=== PATIENT | female | born 1960 | race Caucasian/White ===

== ENCOUNTER 2017-10-11 15:10 | Inpatient (IN) | payer OTHER, MEDICAID, SELFPAY ==
[2017-10-11] VITALS (23 sets, daily range): BP systolic 95–134; BP diastolic 51–78; PULSE 61–90; RESP 11–23; TEMP 36.7–36.9; O2SAT 98–100; BMI 20.7; BMI 21.2
--- NOTE | 2017-10-11 16:39 | EKG12_ITS ---
Test Reason : PCI Blood Pressure : / mmHG Vent. Rate : 077 BPM Atrial Rate : 077 BPM P-R Int : 154 ms QRS Dur : 088 ms QT Int : 410 ms P-R-T Axes : 078 060 070 degrees QTc Int : 463 ms Normal sinus rhythm Normal ECG When compared with ECG of 11-OCT-2017 16:49, MANUAL COMPARISON REQUIRED, DATA IS UNCONFIRMED Confirmed by FAINA ACOSTA, AIYANA ([id number]), assignment desk editor BEATRICE MADISON ([id number]) on 10/19/2017 1:11:51 PM Referred By: Beau Lan Confirmed By:AIYANA EISENBERG MD
--- NOTE | 2017-10-11 16:39 | RAD_ITS ---
STUDY: X-RAY CHEST REASON FOR EXAM: Female, 57 years old. Chest pain. TECHNIQUE: Single AP portable view of the chest. COMPARISON: None. FINDINGS: Telemetry wires overlie the chest. The lungs are mildly hyperexpanded. There are chronic interstitial changes without acute infiltrate or mass. There is no demonstrated pleural abnormality. Normal size heart. Normal mediastinum and vania. Normal visualized pulmonary arteries. Normal visualized aortic arch and descending thoracic aorta. There are diffuse degenerative changes of the visualized thoracic spine. There is degenerative osteoarthritis of the bilateral shoulders. There is no demonstrated abnormality of the visualized soft tissue structures of the upper abdomen. RAD/Chest 1 View (Portable) IMPRESSION: Question COPD without acute cardiopulmonary disease. Electronically Signed: Addison Camarena DO at 17:40 EDT Tel [phone], Service support ,
--- NOTE | 2017-10-11 16:41 | ED.VISSUMM ---
- ER Visit Summary Date of Service: 10/11/17 Chief Complaint: Shortness of breath History of Present Illness: The patient is a 57 F presenting with shortness of breath. Patient states she walked to her mailbox. She came inside and was very short of breath. She was diaphoretic. She had chest pain in mid chest when she takes a deep inspiration. She states that it was hot outside but she has been going outside occasionally. She has history of metastatic small cell lung cancer. Her last chemo was on October 06. 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 She states that she has not felt like this in the past. She has nausea, shortness breath. Denies fever. Physical Examination: Vitals are stable. Patient is afebrile. Alert no acute distress. HEENT exam is unremarkable. Neck is supple. Lungs are clear and equal bilaterally. Heart is regular rate and rhythm. Abdomen is soft nontender nondistended. Extremities are unremarkable. Skin is warm and dry. No focal neurologic deficit. Remainder of exam is unremarkable. Emergency Department Course and Treatment: Patient was given on aspirin on arrival. EKG shows inferior ST elevation [place]. This was sent to Dr. Lan who will take her to the cardiac Associate Material Handler. She was given Brilinta, heparin, IV fluids. Dr. Mendoza is at bedside and will escort her to the Associate Material Handler. Disposition: Admission Impression: Inferior ST elevation [place] This note was generated with [employer] dictation software. It may contain incorrect words, spelling, and punctuation that were not noted in review of the chart prior to signing ED Disposition - Plan for ED Patient: Chief Complaint: Shortness of Breath
[2017-10-11] MEDS: Aspirin 81 MG TAB.CHEW 324 MG PO (16:48)
[2017-10-11 17:03] LABS: Absolute Lymphocyte Count 1.03 X10^3/ul (0.83-4.51); Absolute Neutrophil Count 5.4 X10^3/uL (2.0-7.7); Basophil# 0.03 X10^3/uL; Basophil% 0.5 % (0-1); Hematocrit 36.1 % (37-47); Lymphocyte # 1.03 X10^3/ul (4.0); Lymphocyte % 15.6 % (19-41); Mean Corp Hgb Conc 33.2 g/gl (32-36); Mean Corpuscular Hgb 28.8 pg (27.0-32.0); Mean Corpuscular Volume 86.8 fL (81-99); Mean Platelet Vol. 8.5 fl (6.2-12.0); Monocyte# 0.02 X10^3/uL; Monocyte% 0.3 % (0-10); Neutrophil # 5.43 X10^3/uL (2.7-7.7); Neutrophil % 82.2 % (47-70); Platelet Count 476 K/mm3 (150-450); RBC Distribution Width CV 12.8 % (11.6-14.6); RBC Distribution Width SD 40.8 fl (35.1-43.9); Red Blood Count 4.16 M/mm3 (4.2-5.4); White Blood Count 6.6 K/mm3 (4.4-11.0)
[2017-10-11 17:05] LABS: POSITIVE COUNT NO; POSITIVE DIFFERENTIAL NO; POSITIVE MORPHOLOGY NO
[2017-10-11] MEDS: Heparin Injection (Vial) 5,000 UNIT/ML VIAL 4000 UNIT IV (17:11)
[2017-10-11] MEDS: 0.9% Normal Saline 1,000 ML 999 ML IV (17:12)
[2017-10-11] MEDS: TICAGRELOR 90 MG TABLET 180 MG PO (17:12)
[2017-10-11 17:18] LABS: Anion Gap 9 (5-15); BUN 17 mg/dL (7-18); BUN/Creat Ratio 21.8 RATIO (10-20); Calcium,Total 9.2 mg/dL (8.5-10.1); Chloride 102 mmol/L (98-107); Creatinine, Serum 0.78 mg/dL (0.55-1.02); EST Glomerular Filtration Rate 81 mL/min (>60); Est Glom Filt Rate - Afr Amer 98 mL/min (>60); Estimated Creatinine Clearance 71.23 ml/min; Glucose 104 mg/dL (74-106); Sodium Level 137 mmol/L (136-145)
--- NOTE | 2017-10-11 17:19 | PCM.HP.STD ---
Problem List (1) HTN (hypertension) Status: Chronic (2) STEMI (ST elevation myocardial infarction) Status: Acute (3) HLD (hyperlipidemia) Status: Chronic (4) Lung cancer Status: Chronic (5) Tobacco dependence Status: Chronic History of Present Illness Date of Admission: 10/11/17 Chief Complaint: chest pain The patient is a 57 year old F with a PMH of lung CA diagnosed in August of 2017(being treated by Dr. Gallegos), HTN, HLD and tobacco dependence who presented to the ED at [facility] on 10/11/17 c/o substernal chest pain associated with SOB and diaphoresis. She denied any hx of CAD. There is no family hx of CAD but her mother had an aneurysm. She is currently undergoing chemotherapy and had her last chemo 1 week ago. Chest x-ray shows flattening of the diaphragms consistent with probable COPD and a possible spiculated lesion in the right midlung. CBC shows white blood cell count of 6.6 with hemoglobin of 12 and platelets of 476,000. Electrolytes are within normal limits and the BUN is 17 with a creatinine of 0.78. Initial troponin is elevated at 0.079. EKG is not available for my review at this time.......pt being transferred to the cathodic protection technician. 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 Denies: Edema, Light Headedness, Palpitations Respiratory: Reports: Shortness of Breath - associated with the CP. Denies: Cough, Sputum production Gastrointestinal: Denies: Abdominal Pain, Nausea, Vomiting Genitourinary: Denies: Dysuria Musculoskeletal: Denies: Arm Pain, Joint Tenderness, Leg Pain Skin: Denies: Rash, Wounds Neurological: Denies: Numbness, Tingling, Focal weakness Psychiatric: Reports: Anxiety Endocrine: Reports: Change in Body Habitus - losing weight Hematologic/ Lymphatic: Denies: Hx of blood clot VTE Information - Inpt Only VTE Present on Admission: No VTE Mechan Device Prophylaxis: SCD's, Knee High BEAU Hose VTE Pharm Prophylaxis ordered?: No Reason prophylaxis not ordered:: Treatment Not Indicated Patient Problems: Active and Suspected Problems STEMI (ST elevation myocardial infarction) (Acute) - Physical Exam General: Alert, Oriented x3, Cooperative, - - anxious and overwhelmed HEENT: Atraumatic, PERRLA, EOMI, Normocephalic Oral: Dry Mucosa Neck: Supple, No JVD, Negative Carotid Bruits, Trachea Midline, - - Carotids have brisk upstroke and good pulse volume bilaterally Lungs: Clear to auscultation, No rhonchi, No wheeze, No rales Cardiovascular: Regular rate, Regular Rhythm, Normal S1, Normal S2, No murmurs, No Ectopic Activity, No rub noted, No Gallop Abdomen: Bowel Sounds Present, Soft, Non Tender, Non-Distended Extremities: No clubbing, No cyanosis, No edema, No Calf Tenderness, Peripheral Pulses Normal Skin: No rashes, No breakdown Neurological: Cranial nerves II-XII grossly intact, Neuro grossly intact Psych/Mental Status: Appropriate, Anxious Vital Signs Temp Pulse Resp BP Pulse Ox 98.4 F 84 14 133/77 H 100 10/11/17 15:12 10/11/17 17:13 10/11/17 17:13 10/11/17 17:13 10/11/17 17:13 Oxygen Delivery Method Room Air Weight: 125 lb Body Mass Index (BMI) 20.7 Laboratory Tests Past 24 Hrs 10/11/17 10/11/17 16:55 16:55 WBC 6.6 RBC 4.16 L Hgb 12.0 Hct 36.1 L MCV 86.8 MCH 28.8 MCHC 33.2 RDW 12.8 RDW Differential 40.8 Plt Count 476 H MPV 8.5 Immature Gran % (Auto) 1.400 H Neut % (Auto) 82.2 H Lymph % (Auto) 15.6 L [place] % (Auto) 0.3 Eos % (Auto) 0.0 Baso % (Auto) 0.5 Absolute Neuts (auto) 5.4 Absolute Lymphs (auto) 1.03 Total Counted Not Reportable Sodium 137 Potassium 4.0 Chloride 102 Carbon Dioxide 26.0 Anion Gap 9 BUN 17 Creatinine 0.78 Estim Creat Clear Calc 71.23 Est GFR (MDRD) Af Amer 98 Est GFR (MDRD) Non-Af 81 BUN/Creatinine Ratio 21.8 H Glucose 104 Calcium 9.2 Troponin I 0.079 H Assessment/Plan All Active Problems H/O right coronary artery stent placement (Acute 10/11/17) STEMI (ST elevation myocardial infarction) (Acute) Impressions 1. STEMI 2. Lung CA diagnosed in August of 2017 3. HTN 4. HLD 5. Tobacco dependence 6. Dehydration Pt taken to the cathodic protection technician from the ED. further orders after results of cath known and she is transferred to the ICU. Code Visit Inpatient E&M: 82235 Init Hosp L3
--- NOTE | 2017-10-11 17:24 | HP.PCM_ITS ---
Problem List (1) HTN (hypertension) Status: Chronic (2) STEMI (ST elevation myocardial infarction) Status: Acute (3) HLD (hyperlipidemia) Status: Chronic (4) Lung cancer Status: Chronic (5) Tobacco dependence Status: Chronic History of Present Illness Date of Admission: 10/11/17 Chief Complaint: chest pain The patient is a 57 year old F with a PMH of lung CA diagnosed in August of 2017( being treated by Dr. Gallegos), HTN, HLD and tobacco dependence who presented to the ED at [facility] on 10/11/17 c/o substernal chest pain associated with SOB and diaphoresis. She denied any hx of CAD. There is no family hx of CAD but her mother had an aneurysm. She is currently undergoing chemotherapy and had her last chemo 1 week ago. Chest x-ray shows flattening of the diaphragms consistent with probable COPD and a possible spiculated lesion in the right midlung. CBC shows white blood cell count of 6.6 with hemoglobin of 12 and platelets of 476,000. Electrolytes are within normal limits and the BUN is 17 with a creatinine of 0.78. Initial troponin is elevated at 0.079. EKG is not available for my review at this time.......pt being transferred to the semiconductor lab technician. 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 Denies: Edema, Light Headedness, Palpitations Respiratory: Reports: Shortness of Breath - associated with the CP. Denies: Cough, Sputum production Gastrointestinal: Denies: Abdominal Pain, Nausea, Vomiting Genitourinary: Denies: Dysuria Musculoskeletal: Denies: Arm Pain, Joint Tenderness, Leg Pain Skin: Denies: Rash, Wounds Neurological: Denies: Numbness, Tingling, Focal weakness Psychiatric: Reports: Anxiety Endocrine: Reports: Change in Body Habitus - losing weight Hematologic/ Lymphatic: Denies: Hx of blood clot VTE Information - Inpt Only VTE Present on Admission: No VTE Mechan Device Prophylaxis: SCD's, Knee High BEAU Hose VTE Pharm Prophylaxis ordered?: No Reason prophylaxis not ordered:: Treatment Not Indicated Patient Problems: Active and Suspected Problems STEMI (ST elevation myocardial infarction) (Acute) - Physical Exam General: Alert, Oriented x3, Cooperative, - - anxious and overwhelmed HEENT: Atraumatic, PERRLA, EOMI, Normocephalic Oral: Dry Mucosa Neck: Supple, No JVD, Negative Carotid Bruits, Trachea Midline, - - Carotids have brisk upstroke and good pulse volume bilaterally Lungs: Clear to auscultation, No rhonchi, No wheeze, No rales Cardiovascular: Regular rate, Regular Rhythm, Normal S1, Normal S2, No murmurs, No Ectopic Activity, No rub noted, No Gallop Abdomen: Bowel Sounds Present, Soft, Non Tender, Non-Distended Extremities: No clubbing, No cyanosis, No edema, No Calf Tenderness, Peripheral Pulses Normal Skin: No rashes, No breakdown Neurological: Cranial nerves II-XII grossly intact, Neuro grossly intact Psych/Mental Status: Appropriate, Anxious Vital Signs Temp Pulse Resp BP Pulse Ox 98.4 F 84 14 133/77 H 100 10/11/17 15:12 10/11/17 17:13 10/11/17 17:13 10/11/17 17:13 10/11/17 17:13 Oxygen Delivery Method Room Air Weight: 125 lb Body Mass Index (BMI) 20.7 Laboratory Tests Past 24 Hrs 10/11/17 10/11/17 16:55 16:55 WBC 6.6 RBC 4.16 L Hgb 12.0 Hct 36.1 L MCV 86.8 MCH 28.8 MCHC 33.2 RDW 12.8 RDW Differential 40.8 Plt Count 476 H MPV 8.5 Immature Gran % (Auto) 1.400 H Neut % (Auto) 82.2 H Lymph % (Auto) 15.6 L [place] % (Auto) 0.3 Eos % (Auto) 0.0 Baso % (Auto) 0.5 Absolute Neuts (auto) 5.4 Absolute Lymphs (auto) 1.03 Total Counted Not Reportable Sodium 137 Potassium 4.0 Chloride 102 Carbon Dioxide 26.0 Anion Gap 9 BUN 17 Creatinine 0.78 Estim Creat Clear Calc 71.23 Est GFR (MDRD) Af Amer 98 Est GFR (MDRD) Non-Af 81 BUN/Creatinine Ratio 21.8 H Glucose 104 Calcium 9.2 Troponin I 0.079 H Assessment/Plan All Active Problems H/O right coronary artery stent placement (Acute 10/11/17) STEMI (ST elevation myocardial infarction) (Acute) Impressions 1. STEMI 2. Lung CA diagnosed in August of 2017 3. HTN 4. HLD 5. Tobacco dependence 6. Dehydration Pt taken to the semiconductor lab technician from the ED. further orders after results of cath known and she is transferred to the ICU. Code Visit Inpatient E&M: 21392 Init Hosp L3
[2017-10-11 17:28] LABS: Partial Thromboplast Time 24.8 Seconds (24.1-36.2)
[2017-10-11 18:41] LABS: ACT Activated Clotting Time 224 sec (74-137)
[2017-10-11 18:41] LABS: ACT Activated Clotting Time 175 sec (74-137)
--- NOTE | 2017-10-11 18:44 | EKG12_ITS ---
Test Reason : DYSRHYTHMIA Blood Pressure : / mmHG Vent. Rate : 077 BPM Atrial Rate : 077 BPM P-R Int : 144 ms QRS Dur : 084 ms QT Int : 398 ms P-R-T Axes : 078 053 092 degrees QTc Int : 450 ms AGE AND GENDER SPECIFIC ECG ANALYSIS Normal sinus rhythm Inferior infarct , possibly acute ACUTE VA / STEMI Consider right ventricular involvement in acute inferior infarct Abnormal ECG Confirmed by FAINA ACOSTA, AIYANA ([id number]), brands editor BEATRICE MADISON ([id number]) on 10/14/2017 2:54:46 PM Referred By: Beau Lan Confirmed By:AIYANA EISENBERG MD
--- NOTE | 2017-10-11 18:44 | CL.I_ITS ---
Patient Name: STEAFN MARQUES Study Date: 10/11/2017 Performing: Beau Lan MD Ht: 64.96 inches 165 cm : 1960 Wt: 125.66 lbs 57 kg Age: 57 Gender: female BSA: 1.62 PROCEDURE(S) PERFORMED CI49-QOH/COR/LV LW15-ONI, DELVIS AND/OR PTCA, ARTERY OR GRAFT, SINGLE VESSEL EI23-VDE W OR WO PTCA, EACH ADD'L ARTERY, SAME MAJOR CLINICAL PROFILE AND CO-MORBIDITIES Patient presents with STEMI for emergent cardiac cath. Indications: ACS <= 24 hrs, Suspected CAD Heart Failure: None Stress/Imaging Stress/Image Study Performed: No Angina Classification Anginal Classification w/in 2 Weeks: No symptoms CAD Presentations: STEMI. 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 Non obstructive coronary arteries Successful PTCA/DELVIS of the proximal PDA with a 2.25 x 20 Promus Synergy; 95%-->0%, no dissection. Successful PTCA/DELVIS of the mid RCA with a 3.5 x 32 Promus Synergy; 75%-->0%, no dissection. Successful PTCA/DELVIS of the Proximal RCA with a 3.0 x 20 Promus Synergy; 75%-->0%, no dissection. Pt had no CP/angina documented in waiting area and only mentioned pleuritic type CP during interview with Dr Matias at around 1643. STEMI called after EKG noted acute inferior ST elevation at 1651. RECOMMENDATIONS Referred for immediate PCI Management as per referring [place] Instructor Highly recommend quitting all tobacco products Follow up with primary sign maker Risk factor modification ASA Indefinitley Plavix for at least 12 months Routine post interventional care Refer for Outpatient Cardiac Rehab Manual sheath removal per protocol Follow up with Dr. Lan Medical management of LCX and DIAG#1. DESCRIPTION OF PROCEDURE The patient arrived to the procedure lab. The risks and benefits of the procedure as well as a full d escription of our services here and lack of surgical backup were fully explained to the patient and/o r their significant other prior to the catheterization. The Timeout was completed, verifying the jo ect patient and procedure. The patient's procedural site was prepped and draped in the usual fashion. Local anesthetic was given subcutaneously to right groin region with Lidocaine 2%. Using a modified Seldinger technique, arterial access was obtained via the right femoral artery, a 6Fr sheath was inse rted.. Left Coronary Artery selective angiography was performed in multiple views using a 4 Fr. JL5 catheter. Left Ventriculography was performed in KNIGHT projection using a 4 Fr. Pigtail catheter. LV to AO pullback pressures were then recordedThe images were reviewed and options discussed. A decision w as then made to proceed with an Intervention, IVUS or other adjunct procedure. HS 1 Guide catheter was inserted and engaged into the RCA. Runthrough Guide wire was advanced to the Right PDA. Angiogram performed pre balloon dilatation. 2.0 x 12 Emerge Balloon catheter was inserted. PTCA balloon inflated at 6 atms for 8 secs. Balloon catheter was repositioned to additional lesion i n the right coronary, mid. PTCA balloon inflated at 6 atms for 9 secs. Balloon catheter was repositio bobo to additional lesion in the posterior descending, proximal. PTCA balloon inflated at 6 atms for 6 secs. Angiogram performed post balloon dilatation. 2.25 x 20 Synergy Drug Eluting stent was inserted . Drug Eluting stent was advanced across the lesion in the posterior descending, proximal. 2.5 x 32 S ynergy Drug Eluting stent was inserted. Drug Eluting stent was advanced across the lesion in the righ t coronary, mid. 3.0 x 20 Synergy Drug Eluting stent was inserted. Drug Eluting stent was advanced ac ross the lesion in the right coronary, proximal. Angiogram performed post stent deployment. The art erial sheath was sutured in place and capped CORONARY ANGIOGRAPHY DOMINANCE: Right Dominant LEFT HEART ASSESSMENT Left Ventricular Ejection Fraction: by LV Gram 55 % Depressed Left Ventricular systolic function Normal Left Ventricular End Diastolic Pressure Inferior Mid Hypokinesis - Mild LEFT MAIN: Angiographically normal LEFT ANTERIOR DECENDING ARTERY: Mild luminal irregularities less than 30% DIAGONAL 1: Proximal - Mild luminal irregularities less than 30% CIRCUMFLEX ARTERY: MID CIRC: Moderate luminal irregularities up to 50% RIGHT CORONARY ARTERY: PROX RCA: 75 % Stenosis MID RCA: 75 % Stenosis RT PDA: Proximal - 95 % Stenosis INTERVENTION INFORMATION LESION SITE: Rt PDA (Proximal) Lesion Complexity: High/C, thrombus present: Yes, lesion length: 20 mm Pre Stenosis: 95 % Pre intervention VASQUEZ flow: 2 PROCEDURE: Drug Eluting Stent with pre dilatation. Post Stenosis: 0 % Post intervention VASQUEZ flow: 3 Lesion Devices: Medtronic 6 Fr HSI SH 100cm Guide Catheter Terumo .014 Runthrough Extra Floppy 180cm straight Gustavo Sci EMERGE MR 2.00x12 BALLOON Gustavo Sci Synergy MR DELVIS 2.25x20 LESION SITE: RCA (Mid) Lesion Complexity: High/C, lesion at bifurcation: Yes, thrombus present: No, culprit lesion: No, lesi on length: 32 mm Pre Stenosis: 75 % Pre intervention VASQUEZ flow: 3 PROCEDURE: Drug Eluting Stent with pre dilatation. Post Stenosis: 0 % Post intervention VASQUEZ flow: 3 Lesion Devices: Medtronic 6 Fr HSI SH 100cm Guide Catheter Terumo .014 Runthrough Extra Floppy 180cm straight Gustavo Sci EMERGE MR 2.00x12 BALLOON Gustavo Sci Synergy MR DELVIS 2.50x32 LESION SITE: RCA (Proximal) Lesion Complexity: High/C, lesion at bifurcation: No, thrombus present: No, lesion length: 20 mm, cul prit lesion: No PROCEDURE: Drug Eluting Stent Lesion Devices: Medtronic 6 Fr HSI SH 100cm Guide Catheter Terumo .014 Runthrough Extra Floppy 180cm straight Gustavo Sci Synergy MR DELVIS 3.00x20 COMPLICATIONS No Complications PROCEDURE MEDICATIONS Oxygen: 3 L/min via nasal cannula Oxygen: 4 L/min via nasal cannula Atropine 1mg/10ml 0.25 amp @ 10/11/2017 17:59:57 Heparin 6000 unit(s) IV 10/11/2017 17:53:15 Nitro 200 mcg IC 10/11/2017 18:14:52 IV Fluids: .9 NaCl increased to WO ml/hr 10/11/2017 17:42:23 SUMMARY OF HEMODYNAMIC DATA Time AIR REST ECG 17:30:55 AO 129/79 (102) SA 17:49:41 AO 70/39 (49) 18:01:36 LV 96/-10, 9 18:19:06 LV 96/-8, 9 18:19:12 LVp 93/-9, 9 18:19:28 AOp 96/49 (69) 18:19:33 Signed By Beau Lan MD On 10/11/2017 18:43:28 Beau Lan MD
[2017-10-11] MEDS: 0.9% Normal Saline 1,000 ML 150 ML IV (19:00)
[2017-10-11 21:06] LABS: ACT Activated Clotting Time 158 sec (74-137)
[2017-10-11 22:10] LABS: ACT Activated Clotting Time 131 sec (74-137)
[2017-10-11] MEDS: Metoprolol Tartrate 25 MG Tablet 12.5 MG PO (22:54)
[2017-10-11] MEDS: Atorvastatin Calcium 80 MG Tablet PO (22:54)
[2017-10-11] MEDS: TICAGRELOR 90 MG TABLET PO (22:54)
[2017-10-12] VITALS (29 sets, daily range): BP systolic 91–117; BP diastolic 48–73; PULSE 58–94; RESP 14–28; TEMP 36.6–37.1; O2SAT 96–100
[2017-10-12 03:22] LABS: Hematocrit 25.4 % (37-47); Hemoglobin 8.6 g/dl (12.0-15.0); Mean Corp Hgb Conc 33.9 g/gl (32-36); Mean Corpuscular Hgb 29.4 pg (27.0-32.0); Mean Corpuscular Volume 86.7 fL (81-99); Mean Platelet Vol. 7.9 fl (6.2-12.0); Platelet Count 337 K/mm3 (150-450); RBC Distribution Width SD 41.5 fl (35.1-43.9); Red Blood Count 2.93 M/mm3 (4.2-5.4); White Blood Count 3.5 K/mm3 (4.4-11.0)
[2017-10-12 03:25] LABS: Scan Indicated on CBC? Y/N NO
[2017-10-12 03:58] LABS: Anion Gap 9 (5-15); BUN 13 mg/dL (7-18); BUN/Creat Ratio 21.8 RATIO (10-20); Calcium,Total 8.1 mg/dL (8.5-10.1); Chloride 109 mmol/L (98-107); Cholesterol 151 mg/dL (200); EST Glomerular Filtration Rate 110 mL/min (>60); Est Glom Filt Rate - Afr Amer 133 mL/min (>60); Estimated Creatinine Clearance 93.09 ml/min; Glucose 93 mg/dL (74-106); High Density Lipoprotein 48 mg/dL; Potassium 3.9 mmol/L (3.5-5.1); Sodium Level 141 mmol/L (136-145); Triglycerides 228 mg/dL; Very Low Density Lipoprotein 46 mg/dL (5-40)
[2017-10-12 05:25] LABS: Absolute Lymphocyte Count 1.34 X10^3/ul (0.83-4.51); Absolute Neutrophil Count 2.6 X10^3/uL (2.0-7.7); Basophil# 0.03 X10^3/uL; Basophil% 0.8 % (0-1); Hematocrit 26.2 % (37-47); Hemoglobin 8.8 g/dl (12.0-15.0); Lymphocyte # 1.34 X10^3/ul (4.0); Lymphocyte % 33.8 % (19-41); Mean Corp Hgb Conc 33.6 g/gl (32-36); Mean Corpuscular Hgb 29.2 pg (27.0-32.0); Mean Platelet Vol. 8.3 fl (6.2-12.0); Monocyte# 0.02 X10^3/uL; Monocyte% 0.5 % (0-10); Neutrophil # 2.56 X10^3/uL (2.7-7.7); Neutrophil % 64.4 % (47-70); RBC Distribution Width CV 12.9 % (11.6-14.6); RBC Distribution Width SD 41.7 fl (35.1-43.9); Red Blood Count 3.01 M/mm3 (4.2-5.4)
[2017-10-12 05:27] LABS: Differential Indicated SCAN CRITERIA MET; POSITIVE COUNT YES; POSITIVE DIFFERENTIAL NO; POSITIVE MORPHOLOGY NO
[2017-10-12] MEDS: Ondansetron 4 MG/2 ML Vial IV ×2 (05:42→15:54)
[2017-10-12] MEDS: 0.9% NaCl Peripheral Flush Adult/Peds IV ×3 (05:42→15:55)
[2017-10-12 05:47] LABS: Platelet Estimate ADEQUATE (ADEQ); Red Cell Morphology NORM C+C NORMAL (NORM C&C)
--- NOTE | 2017-10-12 07:24 | PCM.PN.HOSP ---
Patient Problems: Active and Suspected Problems STEMI (ST elevation myocardial infarction) (Acute) Subjective: Patient is a 57-year-old female with a past medical history of lung cancer diagnosed 08/29/2017 and currently on chemotherapy, hypertension, hyperlipidemia and nicotine dependence was admitted via the ED on 10-27 with a complaint of substernal chest pain with associated shortness of breath and diaphoresis was diagnosed with an inferior ST DEQUAN based on EKG findings and elevated troponin of 0.079. She was sent straight to the [facility] from the ED and had drug-eluting stents placed in the in the proximal and mid RCA and proximal PDA. She has remained stable. Patient seen and examined this morning. SHe was sitting up comfortably in bed and had no complaints. She denied any fever or chills, any shortness of breath, any chest pain, any abdominal pain, any diarrhea vomiting. Review of systems otherwise negative. Vital signs from overnight reviewed and stable. She has had a drop in hemoglobin, which is likely due to hemodilution from IV fluid administration. Vitals/I&O's: Vital Signs Temp Pulse Resp BP Pulse Ox 98.8 F 59 L 22 H 99/61 99 10/12/17 00:00 10/12/17 04:00 10/12/17 04:00 10/12/17 04:00 10/12/17 04:00 Oxygen Delivery Method Room Air Weight: 127 lb 6.835 oz Body Mass Index (BMI) 21.2 Intake and Output for Last 24 Hours 10/10/17 10/11/17 10/12/17 23:59 23:59 23:59 Intake Total 1004 / 1004 Output Total 300 / 300 Balance 704 / 704 General: Alert, Oriented x3, Cooperative, No apparent distress HEENT: Atraumatic, PERRLA, EOMI, Normocephalic Oral: Moist Mucosa Neck: Supple, No JVD, Negative Carotid Bruits Lungs: Clear to auscultation, Normal air movement, No rhonchi, No wheeze, No rales Cardiovascular: Regular rate, Regular Rhythm, Normal S1, Normal S2, No murmurs Abdomen: Bowel Sounds Present, Soft, Non Tender, Non-Distended, No Hepato-splenomegaly, - - Dressing over right groin intact, no tenderness or erythema or swelling noted. Extremities: No clubbing, No cyanosis, No edema, Capillary Refill Less than 3 Seconds Skin: No rashes, No breakdown Musculoskeletal: No Tenderness to Palpation of Joints or Extremities Lymphatic: No Cervical, Supraclavicular, or Inguinal Adenopathy Neurological: Cranial nerves II-XII grossly intact Psych/Mental Status: Normal Affect, Appropriate, Alert and oriented to time, place, person, mood and affect Laboratory Results 10/11/17 17:50: Activated Clotting Time 175 H 10/11/17 18:19: Activated Clotting Time 224 H 10/11/17 20:55: Troponin I 6.500 H* 10/11/17 20:57: Activated Clotting Time 158 H 10/11/17 21:59: Activated Clotting Time 131 10/12/17 00:15: Troponin I 15.900 H* 10/12/17 03:12: WBC 3.5 L, RBC 2.93 L, Hgb 8.6 L, Hct 25.4 L, MCV 86.7, MCH 29.4, MCHC 33.9, RDW 13.0, RDW Differential 41.5, Plt Count 337, MPV 7.9 10/12/17 03:12: Sodium 141, Potassium 3.9, Chloride 109 H, Carbon Dioxide 23.0, Anion Gap 9, BUN 13, Creatinine 0.60, Estim Creat Clear Calc 93.09, Est GFR (MDRD) Af Amer 133, Est GFR (MDRD) Non-Af 110, BUN/Creatinine Ratio 21.8 H, Glucose 93, Calcium 8.1 L, Triglycerides 228 H, Cholesterol 151, LDL Cholesterol 57, VLDL Cholesterol 46 H, HDL Cholesterol 48 10/12/17 03:12: Troponin I 20.900 H* 10/12/17 05:15: WBC 4.0 L, RBC 3.01 L, Hgb 8.8 L, Hct 26.2 L, MCV 87.0, MCH 29.2, MCHC 33.6, RDW 12.9, RDW Differential 41.7, Plt Count TNP, MPV 8.3, Immature Gran % (Auto) 0.500, Neut % (Auto) 64.4, Lymph % (Auto) 33.8, Norman % (Auto) 0.5, Eos % (Auto) 0.0, Baso % (Auto) 0.8, Absolute Neuts (auto) 2.6, Absolute Lymphs (auto) 1.34, Total Counted Not Reportable, Platelet Estimate ADEQUATE, RBC Morphology NORM C+C Current Medications Acetaminophen (Tylenol) 650 mg PO Q6H PRN PRN PRN Reason: Mild Pain (0-2/10) Aspirin (Ecotrin) 81 mg PO DAILY@0800 [facility] Atorvastatin Calcium (Lipitor) 80 mg PO QHS [facility] Last Admin: 10/11/17 22:54 Dose: 80 mg Atropine Sulfate () 0.5 mg IV UD PRN PRN Reason: HR <50 bpm Lisinopril (Zestril) 2.5 mg PO DAILY [facility] Metoprolol Tartrate (Lopressor (Beta Elmer)) 12.5 mg PO BID [facility] Last Admin: 10/11/17 22:54 Dose: 12.5 mg Ondansetron HCl (Zofran) 4 mg IV Q6H PRN PRN PRN Reason: NAUSEA/VOMITING Last Admin: 10/12/17 05:42 Dose: 4 mg Sodium Chloride () 500 ml IV BOLUS PRN PRN Reason: VASO-VAGAL PROTOCOL Sodium Chloride () 5 - 30 ml IV UD PRN PRN Reason: SALINE FLUSH Last Admin: 10/12/17 05:42 Dose: 5 ml Ticagrelor (Brilinta) 90 mg PO BID [facility] Last Admin: 10/11/17 22:54 Dose: 90 mg Trazodone HCl (Desyrel) 50 mg PO QHS PRN PRN Reason: INSOMNIA Medical Necessity - Tobacco Use Smoking Status: Light Smoker (<10/day) Tobacco Use: Cigarettes Assessment/Plan All Active Problems H/O right coronary artery stent placement (Acute 10/11/17) STEMI (ST elevation myocardial infarction) (Acute) 57-year-old female admitted with complaint of shortness of breath, pain and diaphoresis and was found to have inferior STEMI; she is s/p PCI with stent placement 1. STEMI s/p PCI with stent placement has no complaints; feels well vitals stable. cath showed EF of 55%, with normal LV end diasolic pressure, mild inferior hypokinesis, 95% stenosis in proximal PDA, 75% stenosis in proximal and mid RCA troponins trended up to 20 after PCI; will monitor on aspirin, metoprolol, lisinopril, high intensity atorvastatin and brilinta; will continue discussed with Dr Lan, to monitor in ICU for another day to get 2D echo today; for possible DC tomorrow 2. 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 said she is due to have brain MRI as well will let Dr Osorio (covering for Dr Gallegos) know she is in hospital. 3. HTN: controlled. On metoprolol and lisinopril 4. Hyperlipidemia: on high intensity statin 5. Anemia, likely due to hemodilution Hb dropped from 12 to 8.8. Currently asymptomatic likely due to IVF administration. Will stop IVF and monitor and give a dose of IV lasix 20mg once to help with hemodynamic optimisation 5. Nicotine dependence: counselled to quit. DVT prophylaxis: heparin This note was generated with [employer] dictation software. It may contain incorrect words, spelling, and punctuation that were not noted in checking the note before signing. Code Visit Inpatient E&M: 55026 Subs Hosp L3
--- NOTE | 2017-10-12 08:13 | ECHOD_ITS ---
Reason For Study: S/P CO Procedure This was a 2D Doppler, Color Flow transthoracic echocardiogram. Exam performed portable in ICU/CCU. Left Ventricle Normal size and thickness. The estimated ejection fraction is 60 %. Stage 1 diastolic dysfunction. No regional wall motion abnormalities noted. Right Ventricle Normal size and thickness. Normal systolic function. Atria Normal left atrium. Normal right atrium. Normal atrial septum. Mitral Valve The mitral valve is structurally normal. No prolapse or stenosis seen. Tricuspid Valve Normal tricuspid valve. Trivial tricuspid valve insufficiency. Right ventricular systolic pressure estimated to be 18 mmHg. Aortic Valve Normal aortic valve. Trisinus/trileaflet aortic valve. Pulmonic Valve Normal pulmonic valve. Great Vessels Normal aortic root. Normal arch. Normal inferior vena cava. Inferior vena cava collapse with sniff. Pericardium/Pleural No pericardial effusion. MMode/2D Measurements & Calculations LVIDd: 3.9 cm IVSd: 0.91 cm Ao root diam: 3.4 cm LVIDs: 2.6 cm LVPWd: 0.98 cm LA dimension: 2.9 cm RVDd: 3.1 cm FS: 34.3 % LAV(MOD-sp4): 25.3 ml LVAd ap4: 21.6 cm2 SV(MOD-sp4): 27.8 ml EDV(MOD-sp4): 52.9 ml EDV(sp4-el): 53.1 ml LVAs ap4: 13.5 cm2 ESV(MOD-sp4): 25.1 ml ESV(sp4-el): 25.3 ml EF(MOD-sp4): 52.6 % EF(sp4-el): 52.5 % SV(sp4-el): 27.9 ml LA A4 area: 11.8 cm2 RA A4 area: 9.9 cm2 Time Measurements MV dec time: 0.27 sec Doppler Measurements & Calculations MV E max raghu: 57.2 cm/sec Lat Peak E' Raghu: 9.2 cm/sec Med Peak E' Raghu: 5.9 cm/sec MV A max raghu: 86.8 cm/sec E/E' lat: 6.2 E/E' med: 9.7 MV E/A: 0.66 MV V2 max: 84.1 cm/sec MV P1/2t max raghu: 69.5 cm/sec Ao V2 max: 129.0 cm/sec MV max P.8 mmHg MV P1/2t: 100.9 msec Ao max P.7 mmHg MV V2 mean: 45.7 cm/sec MV dec slope: 201.6 cm/sec2 Ao V2 mean: 82.8 cm/sec MV mean P.98 mmHg MVA(P1/2t): 2.2 cm2 Ao mean P.1 mmHg MV V2 VTI: 24.3 cm Ao V2 VTI: 22.1 cm LV V1 max: 117.6 cm/sec PA V2 max: 97.3 cm/sec LV V1 max P.5 mmHg LV V1 mean P.8 mmHg LV V1 mean: 78.8 cm/sec LV V1 VTI: 22.2 cm Interpretation Summary The estimated ejection fraction is 60 %. Stage 1 diastolic dysfunction. Trivial tricuspid valve insufficiency. Right ventricular systolic pressure estimated to be 18 mmHg. There is no comparison study available. Ordering Physician: Beau Lan Referring Physician: Beau Lan Performed By: Luke Grace RCS
[2017-10-12] MEDS: TICAGRELOR 90 MG TABLET PO ×2 (08:44→21:00)
[2017-10-12] MEDS: Metoprolol Tartrate 25 MG Tablet 12.5 MG PO (08:44)
[2017-10-12] MEDS: Aspirin E.C. 81 MG Tablet PO (08:44)
[2017-10-12] MEDS: Furosemide 20 MG/2 ML VIAL IV (08:56)
--- NOTE | 2017-10-12 09:14 | PCM.PN.CARD ---
Subjectve: Patient doing very well this morning, feels much better. Denies any chest pain, angina, shortness of breath. Right groin is clean/dry/intact without evidence of hematoma thrills or bruits. 1+ DP PT pulses bilaterally. Patient had a drop in her hemoglobin which is most likely due to a combination of excessive hemodilution during IV fluid resuscitation for her acute inferior wall CO as well as recent chemotherapy for her lung cancer. Creatinine stable. Objective: Vital Signs Temp Pulse Resp BP Pulse Ox 97.8 F 62 17 104/57 L 99 10/12/17 08:00 10/12/17 08:44 10/12/17 08:00 10/12/17 08:00 10/12/17 08:00 Oxygen Delivery Method Room Air Weight: 127 lb 6.835 oz Body Mass Index (BMI) 21.2 Intake and Output for Last 24 Hours 10/10/17 10/11/17 10/12/17 23:59 23:59 23:59 Intake Total 1004 / 1004 Output Total 300 / 300 Balance 704 / 704 General: Awake, Alert, Oriented x 3 HEENT: PERRL, EOMI, Sclera Non Icteric Neck: Supple, Good ROM, No Lymph Node Enlargement Lungs: Clear to auscultation Cardiovascular: Regular Rhythm, Normal S1, Normal S2, No Murmurs, No Rubs, No Gallops Vascular: No Carotid Bruits, Normal Femoral Pulses, Normal Radial Pulses, Normal Dorsalis Pedal Pulse, Normal Posterior Tibial Pulses Abdomen: Bowel Sounds Present, Soft, Non Tender, No HSM, No Organomegaly Extremities: No Cyanosis, No Clubbing, No edema Neurological: No Focal Motor or Sensory Deficit 10/11/17 20:55: Troponin I 6.500 H* 10/12/17 00:15: Troponin I 15.900 H* 10/12/17 03:12: WBC 3.5 L, RBC 2.93 L, Hgb 8.6 L, Hct 25.4 L, MCV 86.7, MCH 29.4, MCHC 33.9, RDW 13.0, RDW Differential 41.5, Plt Count 337, MPV 7.9 10/12/17 03:12: Sodium 141, Potassium 3.9, Chloride 109 H, Carbon Dioxide 23.0, Anion Gap 9, BUN 13, Creatinine 0.60, Est GFR (MDRD) Af Amer 133, Est GFR (MDRD) Non-Af 110, BUN/Creatinine Ratio 21.8 H, Glucose 93, Calcium 8.1 L, Triglycerides 228 H, Cholesterol 151, LDL Cholesterol 57, VLDL Cholesterol 46 H, HDL Cholesterol 48 10/12/17 03:12: Troponin I 20.900 H* 10/12/17 05:15: WBC 4.0 L, RBC 3.01 L, Hgb 8.8 L, Hct 26.2 L, MCV 87.0, MCH 29.2, MCHC 33.6, RDW 12.9, RDW Differential 41.7, Plt Count TNP, MPV 8.3, Immature Gran % (Auto) 0.500, Neut % (Auto) 64.4, Lymph % (Auto) 33.8, Kay % (Auto) 0.5, Eos % (Auto) 0.0, Baso % (Auto) 0.8, Absolute Neuts (auto) 2.6, Total Counted Not Reportable Rhythm: Normal sinus rhythm with 4 beat an AP run of nonsustained ventricular tachycardia, self terminating. EKG: Normal sinus rhythm with resolving inferior myocardial infarction with inferior R waves. ECHO: Pending Stress Test: Cardiac Cath: PCI: CT Surgery: Holter monitor: EPS: PPM: CXR: Chest CT Scan: Medical Necessity - Tobacco Use Smoking Status: Light Smoker (<10/day) Tobacco Use: Cigarettes Assessment/Plan 1. Coronary artery disease: Patient presented on 10/11/17 with acute inferior wall myocardial infarction and underwent successful emergent angioplasty and stenting of her proximal PDA, distal RCA, and proximal RCA as well. Her remaining coronary arteries have minimal nonobstructive disease and did not require further evaluation with stress testing. Echocardiogram is pending. Patient is doing quite well and her troponins have peaked so far at 20, and we will continue to monitor in the ICU. She will continue aspirin, Brilinta, low-dose beta-barbara and low-dose Zestril. Patient's hemoglobin drop is most likely result of a combination of her recent chemotherapy for metastatic lung cancer as well as aggressive hemodilution with receiving approximately 3 L of IV fluids. We will Hep-Lock her IV fluids now that she is heme and apically stabilize, and give her 20 mill grams of IV Lasix to maintain optimal fluid balance. Will obtain a 2D echo with Doppler to this morning and repeated in 3 months time going forward. 2. Hemodilution: The patient had a drop in her hemoglobin most likely as a result of hemodilution as well as her chemotherapy recently. She has no outward signs of bleeding, right groin hematoma, or GI issues at this time. 3. Hyperlipidemia: Continue antilipid therapy. Repeat lipid profile in 6 weeks time. 4. Metastatic lung cancer: We will obtain a consultation with Dr. Ballesteros in place of Dr. Gallegos who is out of town. Patient may proceed with chemotherapy at a minimum of 2-3 weeks time if indicated. 5. Thank you very much for the opportunity to put dissipate in the cardiac care of the patient. Code Visit Inpatient E&M: 53078 Subs Hosp L2
--- NOTE | 2017-10-12 09:28 | PN.CARD_ITS ---
Subjectve: Patient doing very well this morning, feels much better. Denies any chest pain , angina, shortness of breath. Right groin is clean/dry/intact without evidence of hematoma thrills or bruits. 1+ DP PT pulses bilaterally. Patient had a drop in her hemoglobin which is most likely due to a combination of excessive hemodilution during IV fluid resuscitation for her acute inferior wall CT as well as recent chemotherapy for her lung cancer. Creatinine stable. Objective: Vital Signs Temp Pulse Resp BP Pulse Ox 97.8 F 62 17 104/57 L 99 10/12/17 08:00 10/12/17 08:44 10/12/17 08:00 10/12/17 08:00 10/12/17 08:00 Oxygen Delivery Method Room Air Weight: 127 lb 6.835 oz Body Mass Index (BMI) 21.2 Intake and Output for Last 24 Hours 10/10/17 10/11/17 10/12/17 23:59 23:59 23:59 Intake Total 1004 / 1004 Output Total 300 / 300 Balance 704 / 704 General: Awake, Alert, Oriented x 3 HEENT: PERRL, EOMI, Sclera Non Icteric Neck: Supple, Good ROM, No Lymph Node Enlargement Lungs: Clear to auscultation Cardiovascular: Regular Rhythm, Normal S1, Normal S2, No Murmurs, No Rubs, No Gallops Vascular: No Carotid Bruits, Normal Femoral Pulses, Normal Radial Pulses, Normal Dorsalis Pedal Pulse, Normal Posterior Tibial Pulses Abdomen: Bowel Sounds Present, Soft, Non Tender, No HSM, No Organomegaly Extremities: No Cyanosis, No Clubbing, No edema Neurological: No Focal Motor or Sensory Deficit 10/11/17 20:55: Troponin I 6.500 H* 10/12/17 00:15: Troponin I 15.900 H* 10/12/17 03:12: WBC 3.5 L, RBC 2.93 L, Hgb 8.6 L, Hct 25.4 L, MCV 86.7, MCH 29.4 , MCHC 33.9, RDW 13.0, RDW Differential 41.5, Plt Count 337, MPV 7.9 10/12/17 03:12: Sodium 141, Potassium 3.9, Chloride 109 H, Carbon Dioxide 23.0, Anion Gap 9, BUN 13, Creatinine 0.60, Est GFR (MDRD) Af Amer 133, Est GFR (MDRD ) Non-Af 110, BUN/Creatinine Ratio 21.8 H, Glucose 93, Calcium 8.1 L, Triglycerides 228 H, Cholesterol 151, LDL Cholesterol 57, VLDL Cholesterol 46 H , HDL Cholesterol 48 10/12/17 03:12: Troponin I 20.900 H* 10/12/17 05:15: WBC 4.0 L, RBC 3.01 L, Hgb 8.8 L, Hct 26.2 L, MCV 87.0, MCH 29.2 , MCHC 33.6, RDW 12.9, RDW Differential 41.7, Plt Count TNP, MPV 8.3, Immature Gran % (Auto) 0.500, Neut % (Auto) 64.4, Lymph % (Auto) 33.8, Eddy % (Auto) 0.5 , Eos % (Auto) 0.0, Baso % (Auto) 0.8, Absolute Neuts (auto) 2.6, Total Counted Not Reportable Rhythm: Normal sinus rhythm with 4 beat an AP run of nonsustained ventricular tachycardia, self terminating. EKG: Normal sinus rhythm with resolving inferior myocardial infarction with inferior R waves. ECHO: Pending Stress Test: Cardiac Cath: PCI: CT Surgery: Holter monitor: EPS: PPM: CXR: Chest CT Scan: Medical Necessity - Tobacco Use Smoking Status: Light Smoker (<10/day) Tobacco Use: Cigarettes Assessment/Plan 1. Coronary artery disease: Patient presented on 10/11/17 with acute inferior wall myocardial infarction and underwent successful emergent angioplasty and stenting of her proximal PDA, distal RCA, and proximal RCA as well. Her remaining coronary arteries have minimal nonobstructive disease and did not require further evaluation with stress testing. Echocardiogram is pending. Patient is doing quite well and her troponins have peaked so far at 20, and we will continue to monitor in the ICU. She will continue aspirin, Brilinta, low- dose beta-barbara and low-dose Zestril. Patient's hemoglobin drop is most likely result of a combination of her recent chemotherapy for metastatic lung cancer as well as aggressive hemodilution with receiving approximately 3 L of IV fluids. We will Hep-Lock her IV fluids now that she is heme and apically stabilize, and give her 20 mill grams of IV Lasix to maintain optimal fluid balance. Will obtain a 2D echo with Doppler to this morning and repeated in 3 months time going forward. 2. Hemodilution: The patient had a drop in her hemoglobin most likely as a result of hemodilution as well as her chemotherapy recently. She has no outward signs of bleeding, right groin hematoma, or GI issues at this time. 3. Hyperlipidemia: Continue antilipid therapy. Repeat lipid profile in 6 weeks time. 4. Metastatic lung cancer: We will obtain a consultation with Dr. Ballesteros in place of Dr. Gallegos who is out of town. Patient may proceed with chemotherapy at a minimum of 2-3 weeks time if indicated. 5. Thank you very much for the opportunity to put dissipate in the cardiac care of the patient. Code Visit Inpatient E&M: 01221 Subs Hosp L2
--- NOTE | 2017-10-12 10:00 | EKG12_ITS ---
Test Reason : AM EKG Blood Pressure : / mmHG Vent. Rate : 064 BPM Atrial Rate : 064 BPM P-R Int : 134 ms QRS Dur : 084 ms QT Int : 400 ms P-R-T Axes : 079 016 -08 degrees QTc Int : 412 ms Normal sinus rhythm Inferior infarct , age undetermined Abnormal ECG When compared with ECG of 11-OCT-2017 18:52, MANUAL COMPARISON REQUIRED, DATA IS UNCONFIRMED Confirmed by FAINA ACOSTA, AIYANA ([id number]), rewrite editor BEATRICE MADISON ([id number]) on 10/19/2017 1:11:26 PM Referred By: Beau Lan Confirmed By:AIYANA EISENBERG MD
[2017-10-12] MEDS: Heparin Injection (Vial) 5,000 UNIT/ML VIAL 5000 UNIT SC ×2 (10:26→20:59)
--- NOTE | 2017-10-12 12:11 | CASEMGMT ---
See EFREN LARSEN Assessment Link. Home with someone to stay with her first 24 hours. Pt will contact family or friend. - Discussed Brillinta savings card. Pt has MMO insurance, Brillinta will cost 5$ while covered under her commercial insurance. Pt states this will end as she is not working. [facility] financial personnel assisted with JOSUÉ pito. EFREN LARSEN let pt know to contact cardiology office for assist with financial forms for Brillinta if her insurance ends and she has not been approved for JOSUÉ as she needs to stay on this medication. -Pt states family/friends assist with transportation to physician appointments. Noa FARR RN ACM
--- NOTE | 2017-10-12 12:39 | CRPHASE1 ---
Patient Data/Charges Start Phase II:: FOLLOWING CARDIOLOGY OFFICE VISIT Risk Factors/Lifestyle Smoking Status: Former smoker Hx Hypertension: Yes Hx Metabolic Disorders: Yes Hx Dyslipidemia: Yes Hx Obesity: No Height: 5 ft 5 in - BMI 21.2 Post-Menopausal: Yes Stress: Home/Family Risk Factor for Sedentary Lifestyle: Highest Risk Laboratory Values: Cardiac Rehab Phase I Labs Triglycerides 228 mg/dL (-199) H 10/12/17 03:12 Cholesterol 151 mg/dL (200) 10/12/17 03:12 LDL Cholesterol 57 mg/dL (0-130) 10/12/17 03:12 HDL Cholesterol 48 mg/dL (40-) 10/12/17 03:12 Phase I Education Given On:: [place], Nutrition, Antiplatelet medication Issues Affecting Care:: None Knowledge of Condition:: Yes Learning Preferences: Verbal, Written - CURRENTLY GOING THROUGH CHEMO FOR LUNG CA Hospital Course Presenting Symptoms:: STEMI Medical/Surgical History MD:: Yes - STEMI CAD:: No Diabetes:: No Hypertension:: Yes Dyslipidemia:: Yes Cancer:: Yes - LUNG CA Discharge/Home/Social Eval Discharge Disposition: Home
--- NOTE | 2017-10-12 12:43 | CRPHASE1_ITS ---
Patient Data/Charges Start Phase II:: FOLLOWING CARDIOLOGY OFFICE VISIT Risk Factors/Lifestyle Smoking Status: Former smoker Hx Hypertension: Yes Hx Metabolic Disorders: Yes Hx Dyslipidemia: Yes Hx Obesity: No Height: 5 ft 5 in - BMI 21.2 Post-Menopausal: Yes Stress: Home/Family Risk Factor for Sedentary Lifestyle: Highest Risk Laboratory Values: Cardiac Rehab Phase I Labs Triglycerides 228 mg/dL (-199) H 10/12/17 03:12 Cholesterol 151 mg/dL (200) 10/12/17 03:12 LDL Cholesterol 57 mg/dL (0-130) 10/12/17 03:12 HDL Cholesterol 48 mg/dL (40-) 10/12/17 03:12 Phase I Education Given On:: [place], Nutrition, Antiplatelet medication Issues Affecting Care:: None Knowledge of Condition:: Yes Learning Preferences: Verbal, Written - CURRENTLY GOING THROUGH CHEMO FOR LUNG CA Hospital Course Presenting Symptoms:: STEMI Medical/Surgical History NE:: Yes - STEMI CAD:: No Diabetes:: No Hypertension:: Yes Dyslipidemia:: Yes Cancer:: Yes - LUNG CA Discharge/Home/Social Eval Discharge Disposition: Home
--- NOTE | 2017-10-12 12:45 | CRPH1.INST_ITS ---
General Education CAD and cardiac anatomy and function:: Patient communicates acknowledgment Explanation of diagnoses and procedures:: Patient communicates acknowledgment Sign/Symptoms of [place]:: Patient communicates acknowledgment Antiplatelet therapy: Patient communicates acknowledgment Proper use of NTG-SL: Patient communicates acknowledgment Emergency procedures and activation of EMS: Patient communicates acknowledgment Compliance of all prescribed medications: Patient communicates acknowledgment Smoking Recommendations Include:: Previous smoker; encourage continued cessation Nicotine/Smoking Response Code:: Patient communicates acknowledgment Dyslipidemia Patient Dyslipidemia Risk Factors Are:: Total Cholesterol, Triglycerides, HDL, LDL Recommendations Include:: Lipid profile provided, Reviewed NCEP/ATP guidelines, Therapeutic Lifestyle Change dietary guidelines Dyslipidemia Response Code:: Patient communicates acknowledgment Overweight/Obesity Patient Overweight/Obesity Risk Factors Are:: BMI Normal [18-25 & < 65 years old ] Hypertension Recommendations Include:: Maintain BP <130/85, DASH dietary guidelines, Decrease /maintain normal body weight, Moderation of ETOH Hypertension:: Patient communicates acknowledgment Diabetes Patient Diabetes Risk Factors Are:: No documented hx of diabetes Metabolic Syndrome Patient Metabolic Syndrome Risk Factors Are [3 of 5]:: High triglyceride >150, Hypertension, Low HDL <40 [male] or < 50 [female] Recommendations Include:: Reinforce compliance to risk factor modifications, Encouraged follow-up with Primary Care Physician Metabolic Syndrome Response Code:: Patient communicates acknowledgment Sedentary Patient Sedentary Risk Factors Are:: Lack of regular exercise Recommendations Include:: Aerobic exercise 5-7 times/week for 20-30 minutes continuously, Benefits of regular exercise, Discussed home walking program, Monitored Outpatient Cardiac Rehab Sedentary Response Code:: Patient communicates acknowledgment Stress Recommendations Include:: Identification of stressors, and assessment of coping skills, Stress management techniques Stress Response Code:: Patient communicates acknowledgment
[2017-10-12] MEDS: CHLORHEXIDINE GLUC 2% CLOTH 1 EACH TOWELETTE TOPICAL (16:21)
[2017-10-12] MEDS: Atorvastatin Calcium 80 MG Tablet PO (21:01)
[2017-10-13] VITALS (19 sets, daily range): BP systolic 93–113; BP diastolic 54–67; PULSE 72–98; RESP 16–24; TEMP 36.7–37.1; O2SAT 95–100
[2017-10-13 04:42] LABS: Absolute Lymphocyte Count 1.18 X10^3/ul (0.83-4.51); Absolute Neutrophil Count 1.1 X10^3/uL (2.0-7.7); Basophil# 0.07 X10^3/uL; Basophil% 2.7 % (0-1); Eosinophil# 0.02 X10^3/uL; Eosinophils% 0.8 % (0-5); Hemoglobin 8.8 g/dl (12.0-15.0); Lymphocyte # 1.18 X10^3/ul (4.0); Lymphocyte % 46.3 % (19-41); Mean Corp Hgb Conc 33.8 g/gl (32-36); Mean Corpuscular Hgb 29.6 pg (27.0-32.0); Mean Corpuscular Volume 87.5 fL (81-99); Mean Platelet Vol. 8.2 fl (6.2-12.0); Monocyte# 0.14 X10^3/uL; Monocyte% 5.5 % (0-10); Neutrophil # 1.13 X10^3/uL (2.7-7.7); Neutrophil % 44.3 % (47-70); Platelet Count 323 K/mm3 (150-450); RBC Distribution Width CV 12.4 % (11.6-14.6); RBC Distribution Width SD 38.5 fl (35.1-43.9); Red Blood Count 2.97 M/mm3 (4.2-5.4); White Blood Count 2.6 K/mm3 (4.4-11.0)
[2017-10-13 04:43] LABS: POSITIVE COUNT NO; POSITIVE DIFFERENTIAL NO; POSITIVE MORPHOLOGY NO
[2017-10-13 05:19] LABS: Anion Gap 9 (5-15); BUN 11 mg/dL (7-18); BUN/Creat Ratio 18.2 RATIO (10-20); Calcium,Total 8.4 mg/dL (8.5-10.1); Chloride 106 mmol/L (98-107); EST Glomerular Filtration Rate 108 mL/min (>60); Est Glom Filt Rate - Afr Amer 131 mL/min (>60); Estimated Creatinine Clearance 93.09 ml/min; Glucose 91 mg/dL (74-106); Potassium 3.4 mmol/L (3.5-5.1); Sodium Level 141 mmol/L (136-145)
--- NOTE | 2017-10-13 07:03 | PCM.PN.HOSP ---
Patient Problems: Active and Suspected Problems STEMI (ST elevation myocardial infarction) (Acute) Objective: Patient is a 57-year-old female with a past medical history of lung cancer diagnosed 08/29/2017 and currently on chemotherapy, hypertension, hyperlipidemia and nicotine dependence was admitted via the ED on 10/11/17 with a complaint of substernal chest pain with associated shortness of breath and diaphoresis was diagnosed with an inferior ST DEQUAN based on EKG findings and elevated troponin of 0.079. She was sent straight to the [facility] from the ED and had drug-eluting stents placed in the in the proximal and mid RCA and proximal PDA. She has remained stable. Patient seen and examined. She has no complaints this morning. She feels well and had a good night. She denies any fever or chills, any shortness of breath, any chest pain, any abdominal pain, any diarrhea vomiting. Review of systems otherwise negative. Vital signs and labs reviewed. Patient's blood pressure was noted to be down to around 93/56 this morning. According to patients, her blood pressure was running low couple of weeks ago so she stopped taking her blood pressure medications. Vitals/I&O's: Vital Signs Temp Pulse Resp BP Pulse Ox 98.7 F 76 19 H 93/56 L 97 10/13/17 06:00 10/13/17 06:00 10/13/17 06:00 10/13/17 06:00 10/13/17 06:00 Oxygen Delivery Method Room Air Weight: 128 lb 4.944 oz Body Mass Index (BMI) 21.2 Intake and Output for Last 24 Hours 10/11/17 10/12/17 10/13/17 23:59 23:59 23:59 Intake Total 2084 / 2084 150 / 150 Output Total 300 / 300 Balance 1784 / 1784 150 / 150 General: Alert, Oriented x3, Cooperative HEENT: Atraumatic, PERRLA, EOMI, Normocephalic Oral: Moist Mucosa Neck: Supple, No JVD, Negative Carotid Bruits Lungs: Clear to auscultation, Normal air movement, No rhonchi, No wheeze Cardiovascular: Regular rate, Regular Rhythm, Normal S1, Normal S2, No murmurs Abdomen: Bowel Sounds Present, Soft, Non Tender, Non-Distended, No Hepato-splenomegaly, Passing Flatus Extremities: No clubbing, No cyanosis, No edema, Capillary Refill Less than 3 Seconds Skin: No rashes, No breakdown Musculoskeletal: No Tenderness to Palpation of Joints or Extremities, No Muscle Wasting Lymphatic: No Cervical, Supraclavicular, or Inguinal Adenopathy Neurological: Cranial nerves II-XII grossly intact Psych/Mental Status: Normal Affect, Appropriate, Alert and oriented to time, place, person, mood and affect Laboratory Results 10/13/17 04:30: Sodium 141, Potassium 3.4 L, Chloride 106, Carbon Dioxide 26.0, Anion Gap 9, BUN 11, Creatinine 0.60, Estim Creat Clear Calc 93.09, Est GFR (MDRD) Af Amer 131, Est GFR (MDRD) Non-Af 108, BUN/Creatinine Ratio 18.2, Glucose 91, Calcium 8.4 L 10/13/17 04:30: WBC 2.6 L, RBC 2.97 L, Hgb 8.8 L, Hct 26.0 L, MCV 87.5, MCH 29.6, MCHC 33.8, RDW 12.4, RDW Differential 38.5, Plt Count 323, MPV 8.2, Immature Gran % (Auto) 0.400, Neut % (Auto) 44.3 L, Lymph % (Auto) 46.3 H, [place] % (Auto) 5.5, Eos % (Auto) 0.8, Baso % (Auto) 2.7 H, Absolute Neuts (auto) 1.1 L, Absolute Lymphs (auto) 1.18, Total Counted Not Reportable Diagnostic Data Chest X-Ray 10/11/17 16:39 IMPRESSION: Question COPD without acute cardiopulmonary disease. Electronically Signed: Addison Camarena DO at 17:40 EDT Tel [phone], Service support , Current Medications Acetaminophen (Tylenol) 650 mg PO Q6H PRN PRN PRN Reason: Mild Pain (0-2/10) Aspirin (Ecotrin) 81 mg PO DAILY@0800 [facility] Last Admin: 10/12/17 08:44 Dose: 81 mg Atorvastatin Calcium (Lipitor) 80 mg PO QHS [facility] Last Admin: 10/12/17 21:01 Dose: 80 mg Atropine Sulfate () 0.5 mg IV UD PRN PRN Reason: HR <50 bpm Chlorhexidine Gluconate () 1 each TOPICAL DAILY [facility] Last Admin: 10/12/17 16:21 Dose: 1 each Heparin Sodium (Porcine) (Heparin Na) 5,000 unit SC Q12 [facility] Last Admin: 10/12/17 20:59 Dose: 5,000 u Lisinopril (Zestril) 2.5 mg PO DAILY [facility] Last Admin: 10/12/17 10:05 Dose: Not Given Metoprolol Tartrate (Lopressor (Beta Elmer)) 12.5 mg PO BID [facility] Last Admin: 10/12/17 21:00 Dose: Not Given Nutritional Formula (Lactose Free) (Ensure Enlive) 120 ml PO 4X/DAY [facility] Last Admin: 10/12/17 21:02 Dose: Not Given Ondansetron HCl (Zofran) 4 mg IV Q6H PRN PRN PRN Reason: NAUSEA/VOMITING Last Admin: 10/12/17 15:54 Dose: 4 mg Sodium Chloride () 500 ml IV BOLUS PRN PRN Reason: VASO-VAGAL PROTOCOL Sodium Chloride () 5 - 30 ml IV UD PRN PRN Reason: SALINE FLUSH Last Admin: 10/12/17 15:55 Dose: 10 ml Ticagrelor (Brilinta) 90 mg PO BID [facility] Last Admin: 10/12/17 21:00 Dose: 90 mg Trazodone HCl (Desyrel) 50 mg PO QHS PRN PRN Reason: INSOMNIA Medical Necessity - Tobacco Use Smoking Status: Light Smoker (<10/day) Tobacco Use: Cigarettes Assessment/Plan All Active Problems H/O right coronary artery stent placement (Acute 10/11/17) STEMI (ST elevation myocardial infarction) (Acute) 57-year-old female admitted with complaint of shortness of breath, pain and diaphoresis and was found to have inferior STEMI; she is s/p PCI with stent placement 1. STEMI s/p PCI with stent placement- POD 2 has no complaints; feels well noted to be hypotensive overnight. BP in 90s systolic. Patient is asymptomatic cath showed EF of 55%, with normal LV end diasolic pressure, mild inferior hypokinesis, 95% stenosis in proximal PDA, 75% stenosis in proximal and mid RCA troponins trended up to 20 after PCI; will monitor on aspirin, metoprolol, lisinopril, high intensity atorvastatin and brilinta; o/a of hypotension, per discussion with Dr Lan, will dc lisinopril and maintain metoprolol echo reading: EF of 60% with stage 1 diastolic dysfunction nad no regional wall motion abnormalities. RVSP is 18mmHg. cardiac rehab per cardiology 2. 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 Oncology on board scheduled to have chest CT upon discharge on 10.20.17 to have brain MRI at [facility] in ~ 1 month to follow up with Dr Gallegos in 2 weeks after discharge 3. Neutropenia, likely chemotherapy induced wbc down to 2.6 today, was 6.6 at admission[address] Discussed with Dr Osorio; patient had last session of chemo 1 week ago. Will start sc granix 300mg today. If wbc is not up tomorrow, will discharge home with granix sc 300mg daily x 5 days. Patient to be taught how to give herself the granix shots at home 4. HTN: had episode of hypotension overnight. Remains asymptomatic. Will dc lisinopril and maintain metoprolol 5. Hyperlipidemia: on high intensity statin 6 Anemia, likely due to hemodilution Hb dropped from 12 to 8.8 yesterday. Hb remains at 8.8 will monitor 7. Nicotine dependence: counselled to quit. DVT prophylaxis: heparin This note was generated with [employer] software. It may contain incorrect words, spelling, and punctuation that were not noted in checking the note before signing. Code Visit Inpatient E&M: 14448 [facility] Hosp L3
--- NOTE | 2017-10-13 07:43 | PCM.CONS.B ---
Problem List (1) Lung cancer Status: Chronic Qualifiers: Lung location: unspecified part of lung Comment: Extensive small cell lung cancer (2) Brain metastases Status: Chronic (3) STEMI (ST elevation myocardial infarction) Status: Acute Qualifiers: Involved coronary artery: right coronary artery Qualified Code(s): I21.11 - ST elevation (STEMI) myocardial infarction involving right coronary artery - Consult Date of Consult: 10/13/[address] 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 My final recommendation will be communicated by electronic medical records. - Reason for Consult History of Present Illness Date of Admission: 10/11/17 The patient is a 57 year old F with a PMH significant for extensive small cell lung cancer lung CA diagnosed in August of 2017, HTN, HLD and tobacco dependence who presented to the ED at [facility] on 10/11/17 c/o substernal chest pain associated with SOB and diaphoresis that morning. She denied any hx of CAD. There is no family hx of CAD. Presenting numbness in her left foot along with the left foot drop in July. She underwent MRI evaluation of brain on 08/04/2017. Her MRI scan showed a 2.6 cm mass in the posterior fossa the right abutting the right middle cerebral peduncle along with a couple smaller lesions in the brain. She was transferred to [facility] due to increasing dyspnea and progressive neurological symptoms in August. She also had a low-sodium. She underwent bronchoscopy biopsy and pathology demonstrated small cell lung cancer. Treatment history: s/p palliative whole brain radiation therapy finished on 09/07/17 Carboplatin & etoposide started on 09/13/17 She completed her second cycle of palliative chemotherapy last Wednesday. She was seen in the emergency room, and subsequently admitted for ST elevation PR. Her chest x-ray shows flattening of the diaphragms consistent with probable COPD and a possible spiculated lesion in the right midlung. CBC shows white blood cell count of 6.6 with hemoglobin of 12 and platelets of 476,000. Electrolytes are within normal limits and the BUN is 17 with a creatinine of 0.78. Initial troponin is elevated at 0.079. She underwent successful emergent angioplasty and stenting of her proximal PDA, distal RCA, and proximal RCA as well on 10/11/17. Her remaining coronary arteries have minimal nonobstructive disease and did not require further evaluation with stress testing. Patient has no chest pain, nausea or vomiting today. Still has no shortness of breath. Not had a bowel movement since Wednesday. She has no headaches or neurological symptoms. Past Medical History Past Medical History (Chronic Problems): Chronic Problems HTN (hypertension) (Chronic) HLD (hyperlipidemia) (Chronic) Extensive small cell lung cancer (Chronic) Tobacco dependence (Chronic) Allergies Penicillins [PCN] Allergy (Verified 10/11/17 15:11) Hives Home Medications: Ambulatory Orders Medication Instructions Recorded Ondansetron [Zofran Odt] 8 mg PO Q8H PRN PRN 10/11/17 Surgical History: noncontributory Psychiatric History: No pertinent psych hx PODODERMATOLOGIST History: No pertinent PODODERMATOLOGIST history Lives: Alone Smoking Status: Light Smoker (<10/day) Tobacco Use: Cigarettes Alcohol: Rare Drugs: None Review of Systems Constitutional: Denies: Chills, Fever, Weight Change Eyes: Denies: Vision Change HEENT: Denies: Head Aches, Sinus Congestion, Sinus Drainage Cardiovascular: Reports: Chest Pain, Chest Tightness. Denies: Edema, Light Headedness, Palpitations Respiratory: Reports: Shortness of Breath - associated with the CP. Denies: Cough, Sputum production Gastrointestinal: Denies: Abdominal Pain, Nausea, Vomiting Genitourinary: Denies: Dysuria Musculoskeletal: Denies: Arm Pain, Joint Tenderness, Leg Pain Skin: Denies: Rash, Wounds Neurological: Denies: Numbness, Tingling, Focal weakness Psychiatric: Reports: Anxiety Endocrine: Reports: Change in Body Habitus - losing weight Hematologic/ Lymphatic: Denies: Hx of blood clot STEMI (ST elevation myocardial infarction) (Acute) - Physical Exam General: Alert, Oriented x3, Cooperative, - - anxious and overwhelmed HEENT: Atraumatic, PERRLA, EOMI, Normocephalic Oral: Dry Mucosa Neck: Supple, No JVD, Negative Carotid Bruits, Trachea Midline, - - Carotids have brisk upstroke and good pulse volume bilaterally Lungs: Clear to auscultation, No rhonchi, No wheeze, No rales Cardiovascular: Regular rate, Regular Rhythm, Normal S1, Normal S2, No murmurs, No Ectopic Activity, No rub noted, No Gallop Abdomen: Bowel Sounds Present, Soft, Non Tender, Non-Distended Extremities: No clubbing, No cyanosis, No edema, No Calf Tenderness, Peripheral Pulses Normal Skin: No rashes, No breakdown Neurological: Cranial nerves II-XII grossly intact, Neuro grossly intact Psych/Mental Status: Appropriate, Anxious Vital Signs - 24 hr Temp Pulse Resp BP BP Pulse Ox 10/13/17 06:39 96 10/13/17 06:00 98.7 F 76 19 H 93/56 L 97 10/13/17 05:00 73 21 H 96/54 L 95 10/13/17 04:00 74 24 H 102/66 97 10/13/17 03:06 76 10/13/17 03:00 81 21 H 99/63 97 10/13/17 02:00 75 21 H 99/59 L 97 10/13/17 01:00 76 22 H 94/58 L 96 10/13/17 00:00 98.0 F 76 21 H 109/60 96 10/12/17 23:00 98.0 F 75 20 H 101/61 97 10/12/17 22:00 70 21 H 97/59 L 96 10/12/17 21:00 94 22 H 103/56 L 99 10/12/17 20:00 82 26 H 91/57 L 97 10/12/17 19:11 90 10/12/17 19:00 90 21 H 114/60 98 10/12/17 17:59 78 22 H 101/58 L 100 10/12/17 17:00 72 22 H 103/60 97 10/12/17 16:00 97.9 F 74 18 92/73 100 10/12/17 15:43 77 10/12/17 15:00 77 23 H 99/68 96 10/12/17 14:00 66 23 H 102/55 L 99 10/12/17 13:00 70 23 H 93/53 L 99 10/12/17 12:00 97.9 F 73 14 97/63 99 10/12/17 11:44 65 10/12/17 11:00 67 17 91/54 L 99 10/12/17 10:00 72 28 H 94/48 L 100 10/12/17 09:00 79 22 H 111/54 L 100 10/12/17 08:44 62 10/12/17 08:00 97.8 F 68 17 104/57 L 99 Laboratory Results - last 24 hr 10/13/17 10/13/17 04:30 04:30 WBC 2.6 L RBC 2.97 L Hgb 8.8 L Hct 26.0 L MCV 87.5 MCH 29.6 MCHC 33.8 RDW 12.4 RDW Differential 38.5 Plt Count 323 MPV 8.2 Immature Gran % (Auto) 0.400 Neut % (Auto) 44.3 L Lymph % (Auto) 46.3 H [place] % (Auto) 5.5 Eos % (Auto) 0.8 Baso % (Auto) 2.7 H Absolute Neuts (auto) 1.1 L Absolute Lymphs (auto) 1.18 Total Counted Not Reportable Sodium 141 Potassium 3.4 L Chloride 106 Carbon Dioxide 26.0 Anion Gap 9 BUN 11 Creatinine 0.60 Estim Creat Clear Calc 93.09 Est GFR (MDRD) Af Amer 131 Est GFR (MDRD) Non-Af 108 BUN/Creatinine Ratio 18.2 Glucose 91 Calcium 8.4 L Assessment/Plan All Active Problems H/O right coronary artery stent placement (Acute 10/11/17) STEMI (ST elevation myocardial infarction) (Acute) Extensive small cell lung cancer- s/p cycle 2 of carboplatin and etoposide Neutropenia secondary to chemotherapy (Acute) Plan: -Further cardiac rehab evaluation per cardiology -Okay to continue aspirin once daily -Start Granix 300 mcg sq daily for neutropenia secondary to chemotherapy -Stool softener and laxative for constipation -LMWH subcu daily for DVT prophylaxis -Follow-up CT scan on October 20, outpatient at our office -Follow-up with Dr. Gallegos in 2 weeks, and likely delay her next cycle of chemotherapy by 1 - 2 weeks. cc: Dr. Beau Lan; Dr. Darrian Gallegos; Dr. Jr Darnell
--- NOTE | 2017-10-13 08:03 | CON.PCM_ITS ---
Problem List (1) Lung cancer Status: Chronic Qualifiers: Lung location: unspecified part of lung Comment: Extensive small cell lung cancer (2) Brain metastases Status: Chronic (3) STEMI (ST elevation myocardial infarction) Status: Acute Qualifiers: Involved coronary artery: right coronary artery Qualified Code(s): I21.11 - ST elevation (STEMI) myocardial infarction involving right coronary artery - Consult Date of Consult: 10/13/[address] 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 My final recommendation will be communicated by electronic medical records. - Reason for Consult History of Present Illness Date of Admission: 10/11/17 The patient is a 57 year old F with a PMH significant for extensive small cell lung cancer lung CA diagnosed in August of 2017, HTN, HLD and tobacco dependence who presented to the ED at [facility] on 10/11/17 c/o substernal chest pain associated with SOB and diaphoresis that morning. She denied any hx of CAD. There is no family hx of CAD. Presenting numbness in her left foot along with the left foot drop in July. She underwent MRI evaluation of brain on 08/04/2017. Her MRI scan showed a 2.6 cm mass in the posterior fossa the right abutting the right middle cerebral peduncle along with a couple smaller lesions in the brain. She was transferred to [facility] due to increasing dyspnea and progressive neurological symptoms in August. She also had a low-sodium. She underwent bronchoscopy biopsy and pathology demonstrated small cell lung cancer. Treatment history: s/p palliative whole brain radiation therapy finished on 09/07/17 Carboplatin & etoposide started on 09/13/17 She completed her second cycle of palliative chemotherapy last Wednesday. She was seen in the emergency room, and subsequently admitted for ST elevation [place]. Her chest x-ray shows flattening of the diaphragms consistent with probable COPD and a possible spiculated lesion in the right midlung. CBC shows white blood cell count of 6.6 with hemoglobin of 12 and platelets of 476,000. Electrolytes are within normal limits and the BUN is 17 with a creatinine of 0.78. Initial troponin is elevated at 0.079. She underwent successful emergent angioplasty and stenting of her proximal PDA, distal RCA, and proximal RCA as well on . Her remaining coronary arteries have minimal nonobstructive disease and did not require further evaluation with stress testing. Patient has no chest pain, nausea or vomiting today. Still has no shortness of breath. Not had a bowel movement since Wednesday. She has no headaches or neurological symptoms. Past Medical History Past Medical History (Chronic Problems): Chronic Problems HTN (hypertension) (Chronic) HLD (hyperlipidemia) (Chronic) Extensive small cell lung cancer (Chronic) Tobacco dependence (Chronic) Allergies Penicillins [PCN] Allergy (Verified 10/11/17 15:11) Hives Home Medications: Ambulatory Orders Medication Instructions Recorded Ondansetron [Zofran Odt] 8 mg PO Q8H PRN PRN 10/11/17 Surgical History: noncontributory Psychiatric History: No pertinent psych hx ARC WELDER History: No pertinent ARC WELDER history Lives: Alone Smoking Status: Light Smoker (<10/day) Tobacco Use: Cigarettes Alcohol: Rare Drugs: None Review of Systems Constitutional: Denies: Chills, Fever, Weight Change Eyes: Denies: Vision Change HEENT: Denies: Head Aches, Sinus Congestion, Sinus Drainage Cardiovascular: Reports: Chest Pain, Chest Tightness. Denies: Edema, Light Headedness, Palpitations Respiratory: Reports: Shortness of Breath - associated with the CP. Denies: Cough, Sputum production Gastrointestinal: Denies: Abdominal Pain, Nausea, Vomiting Genitourinary: Denies: Dysuria Musculoskeletal: Denies: Arm Pain, Joint Tenderness, Leg Pain Skin: Denies: Rash, Wounds Neurological: Denies: Numbness, Tingling, Focal weakness Psychiatric: Reports: Anxiety Endocrine: Reports: Change in Body Habitus - losing weight Hematologic/ Lymphatic: Denies: Hx of blood clot STEMI (ST elevation myocardial infarction) (Acute) - Physical Exam General: Alert, Oriented x3, Cooperative, - - anxious and overwhelmed HEENT: Atraumatic, PERRLA, EOMI, Normocephalic Oral: Dry Mucosa Neck: Supple, No JVD, Negative Carotid Bruits, Trachea Midline, - - Carotids have brisk upstroke and good pulse volume bilaterally Lungs: Clear to auscultation, No rhonchi, No wheeze, No rales Cardiovascular: Regular rate, Regular Rhythm, Normal S1, Normal S2, No murmurs, No Ectopic Activity, No rub noted, No Gallop Abdomen: Bowel Sounds Present, Soft, Non Tender, Non-Distended Extremities: No clubbing, No cyanosis, No edema, No Calf Tenderness, Peripheral Pulses Normal Skin: No rashes, No breakdown Neurological: Cranial nerves II-XII grossly intact, Neuro grossly intact Psych/Mental Status: Appropriate, Anxious Vital Signs - 24 hr Temp Pulse Resp BP BP Pulse Ox 10/13/17 06:39 96 10/13/17 06:00 98.7 F 76 19 H 93/56 L 97 10/13/17 05:00 73 21 H 96/54 L 95 10/13/17 04:00 74 24 H 102/66 97 10/13/17 03:06 76 10/13/17 03:00 81 21 H 99/63 97 10/13/17 02:00 75 21 H 99/59 L 97 10/13/17 01:00 76 22 H 94/58 L 96 10/13/17 00:00 98.0 F 76 21 H 109/60 96 10/12/17 23:00 98.0 F 75 20 H 101/61 97 10/12/17 22:00 70 21 H 97/59 L 96 10/12/17 21:00 94 22 H 103/56 L 99 10/12/17 20:00 82 26 H 91/57 L 97 10/12/17 19:11 90 10/12/17 19:00 90 21 H 114/60 98 10/12/17 17:59 78 22 H 101/58 L 100 10/12/17 17:00 72 22 H 103/60 97 10/12/17 16:00 97.9 F 74 18 92/73 100 10/12/17 15:43 77 10/12/17 15:00 77 23 H 99/68 96 10/12/17 14:00 66 23 H 102/55 L 99 10/12/17 13:00 70 23 H 93/53 L 99 10/12/17 12:00 97.9 F 73 14 97/63 99 10/12/17 11:44 65 10/12/17 11:00 67 17 91/54 L 99 10/12/17 10:00 72 28 H 94/48 L 100 10/12/17 09:00 79 22 H 111/54 L 100 10/12/17 08:44 62 10/12/17 08:00 97.8 F 68 17 104/57 L 99 Laboratory Results - last 24 hr 10/13/17 10/13/17 04:30 04:30 WBC 2.6 L RBC 2.97 L Hgb 8.8 L Hct 26.0 L MCV 87.5 MCH 29.6 MCHC 33.8 RDW 12.4 RDW Differential 38.5 Plt Count 323 MPV 8.2 Immature Gran % (Auto) 0.400 Neut % (Auto) 44.3 L Lymph % (Auto) 46.3 H [place] % (Auto) 5.5 Eos % (Auto) 0.8 Baso % (Auto) 2.7 H Absolute Neuts (auto) 1.1 L Absolute Lymphs (auto) 1.18 Total Counted Not Reportable Sodium 141 Potassium 3.4 L Chloride 106 Carbon Dioxide 26.0 Anion Gap 9 BUN 11 Creatinine 0.60 Estim Creat Clear Calc 93.09 Est GFR (MDRD) Af Amer 131 Est GFR (MDRD) Non-Af 108 BUN/Creatinine Ratio 18.2 Glucose 91 Calcium 8.4 L Assessment/Plan All Active Problems H/O right coronary artery stent placement (Acute 10/11/17) STEMI (ST elevation myocardial infarction) (Acute) Extensive small cell lung cancer- s/p cycle 2 of carboplatin and etoposide Neutropenia secondary to chemotherapy (Acute) Plan: -Further cardiac rehab evaluation per cardiology -Okay to continue aspirin once daily -Start Granix 300 mcg sq daily for neutropenia secondary to chemotherapy -Stool softener and laxative for constipation -LMWH subcu daily for DVT prophylaxis -Follow-up CT scan on October 20, outpatient at our office -Follow-up with Dr. Gallegos in 2 weeks, and likely delay her next cycle of chemotherapy by 1 - 2 weeks. cc: Dr. Beau Lan; Dr. Darrian Gallegos; Dr. Jr Darnell
--- NOTE | 2017-10-13 08:43 | PCM.PN.CARD ---
Subjectve: Patient continues to do well, no 24 hour events. Hemoglobin stable around 8.9. Right groin is clean/dry/intact. No thrills, bruits or hematoma. White blood cell count decreased from yesterday. Appreciate Dr. Ballesteros's consultation. Telemetry negative for ventricular tachycardia. Hemoglobin decrease appears to be hemo-dilutional due to aggressive IV fluid resuscitation during STEMI, combined with recent chemotherapy. Antihypertensive medications held yesterday due to hypotension. Objective: Vital Signs Temp Pulse Resp BP Pulse Ox 98.7 F 76 19 H 93/56 L 96 10/13/17 06:00 10/13/17 06:00 10/13/17 06:00 10/13/17 06:00 10/13/17 06:39 Oxygen Delivery Method Room Air Weight: 128 lb 4.944 oz Body Mass Index (BMI) 21.2 Intake and Output for Last 24 Hours 10/11/17 10/12/17 10/13/17 23:59 23:59 23:59 Intake Total 2083 / 2083 150 / 150 Output Total 300 / 300 Balance 1783 / 1783 150 / 150 General: Awake, Alert, Oriented x 3 HEENT: PERRL, EOMI, Sclera Non Icteric Neck: Supple, Good ROM, No Lymph Node Enlargement Lungs: Clear to auscultation Cardiovascular: Regular Rhythm, Normal S1, Normal S2, No Murmurs, No Rubs, No Gallops Vascular: No Carotid Bruits, Normal Femoral Pulses, Normal Radial Pulses, Normal Dorsalis Pedal Pulse, Normal Posterior Tibial Pulses Abdomen: Bowel Sounds Present, Soft, Non Tender, No HSM, No Organomegaly Extremities: No Cyanosis, No Clubbing, No edema Neurological: No Focal Motor or Sensory Deficit 10/13/17 04:30: Sodium 141, Potassium 3.4 L, Chloride 106, Carbon Dioxide 26.0, Anion Gap 9, BUN 11, Creatinine 0.60, Est GFR (MDRD) Af Amer 131, Est GFR (MDRD) Non-Af 108, BUN/Creatinine Ratio 18.2, Glucose 91, Calcium 8.4 L 10/13/17 04:30: WBC 2.6 L, RBC 2.97 L, Hgb 8.8 L, Hct 26.0 L, MCV 87.5, MCH 29.6, MCHC 33.8, RDW 12.4, RDW Differential 38.5, Plt Count 323, MPV 8.2, Immature Gran % (Auto) 0.400, Neut % (Auto) 44.3 L, Lymph % (Auto) 46.3 H, [place] % (Auto) 5.5, Eos % (Auto) 0.8, Baso % (Auto) 2.7 H, Absolute Neuts (auto) 1.1 L, Total Counted Not Reportable Rhythm: Normal sinus rhythm, rare PVC. EKG: Normal sinus rhythm with resolving inferior STEMI. ECHO: Intact LV function, normal RVSP of 18 mmHg.. Stress Test: Cardiac Cath: PCI: CT Surgery: Holter monitor: EPS: PPM: CXR: Chest CT Scan: Medical Necessity - Tobacco Use Smoking Status: Light Smoker (<10/day) Tobacco Use: Cigarettes Assessment/Plan 1. Coronary artery disease: Patient presented on 10/11/17 with acute inferior wall myocardial infarction and underwent successful emergent angioplasty and stenting of her proximal PDA, distal RCA, and proximal RCA as well. Her remaining coronary arteries have minimal nonobstructive disease and did not require further evaluation with stress testing. Echocardiogram is pending. Patient is doing quite well and her troponins have peaked so far at 20, and we will continue to monitor in the ICU. She will continue aspirin. Her beta-barbara and ANNALISE inhibitor were held yesterday due to hypotension. Patient's hemoglobin drop is most likely result of a combination of her recent chemotherapy for metastatic lung cancer as well as aggressive hemodilution with receiving approximately 3 L of IV fluids, as well as recent chemotherapy. Patient's oncologist Dr. Ballesteros was recommending holding the patient from discharge for 1 more day to determine if her white count improves. Patient's 2D echo with Doppler yesterday shows intact LV function with an EF around 55-60%, normal RVSP of 18 mmHg. 2. Hemodilution: The patient had a drop in her hemoglobin most likely as a result of hemodilution as well as her chemotherapy recently. She has no outward signs of bleeding, right groin hematoma, or GI issues at this time. 3. Hyperlipidemia: Continue antilipid therapy. Repeat lipid profile in 6 weeks time. 4. Metastatic lung cancer: We will obtain a consultation with Dr. Ballesteros in place of Dr. Gallegos who is out of town. Appreciate Dr. Ballesteros consultation. Patient may proceed with chemotherapy at a minimum of 2-3 weeks time if indicated. 5. Thank you very much for the opportunity to put dissipate in the cardiac care of the patient. Code Visit Inpatient E&M: 92613 Subs Hosp L2
--- NOTE | 2017-10-13 08:49 | PN.CARD_ITS ---
Subjectve: Patient continues to do well, no 24 hour events. Hemoglobin stable around 8.9. Right groin is clean/dry/intact. No thrills, bruits or hematoma. White blood cell count decreased from yesterday. Appreciate Dr. Ballesteros's consultation. Telemetry negative for ventricular tachycardia. Hemoglobin decrease appears to be hemo-dilutional due to aggressive IV fluid resuscitation during STEMI, combined with recent chemotherapy. Antihypertensive medications held yesterday due to hypotension. Objective: Vital Signs Temp Pulse Resp BP Pulse Ox 98.7 F 76 19 H 93/56 L 96 10/13/17 06:00 10/13/17 06:00 10/13/17 06:00 10/13/17 06:00 10/13/17 06:39 Oxygen Delivery Method Room Air Weight: 128 lb 4.944 oz Body Mass Index (BMI) 21.2 Intake and Output for Last 24 Hours 10/11/17 10/12/17 10/13/17 23:59 23:59 23:59 Intake Total 2083 / 2083 150 / 150 Output Total 300 / 300 Balance 1783 / 1783 150 / 150 General: Awake, Alert, Oriented x 3 HEENT: PERRL, EOMI, Sclera Non Icteric Neck: Supple, Good ROM, No Lymph Node Enlargement Lungs: Clear to auscultation Cardiovascular: Regular Rhythm, Normal S1, Normal S2, No Murmurs, No Rubs, No Gallops Vascular: No Carotid Bruits, Normal Femoral Pulses, Normal Radial Pulses, Normal Dorsalis Pedal Pulse, Normal Posterior Tibial Pulses Abdomen: Bowel Sounds Present, Soft, Non Tender, No HSM, No Organomegaly Extremities: No Cyanosis, No Clubbing, No edema Neurological: No Focal Motor or Sensory Deficit 10/13/17 04:30: Sodium 141, Potassium 3.4 L, Chloride 106, Carbon Dioxide 26.0, Anion Gap 9, BUN 11, Creatinine 0.60, Est GFR (MDRD) Af Amer 131, Est GFR (MDRD ) Non-Af 108, BUN/Creatinine Ratio 18.2, Glucose 91, Calcium 8.4 L 10/13/17 04:30: WBC 2.6 L, RBC 2.97 L, Hgb 8.8 L, Hct 26.0 L, MCV 87.5, MCH 29.6 , MCHC 33.8, RDW 12.4, RDW Differential 38.5, Plt Count 323, MPV 8.2, Immature Gran % (Auto) 0.400, Neut % (Auto) 44.3 L, Lymph % (Auto) 46.3 H, [place] % (Auto) 5.5, Eos % (Auto) 0.8, Baso % (Auto) 2.7 H, Absolute Neuts (auto) 1.1 L, Total Counted Not Reportable Rhythm: Normal sinus rhythm, rare PVC. EKG: Normal sinus rhythm with resolving inferior STEMI. ECHO: Intact LV function, normal RVSP of 18 mmHg.. Stress Test: Cardiac Cath: PCI: CT Surgery: Holter monitor: EPS: PPM: CXR: Chest CT Scan: Medical Necessity - Tobacco Use Smoking Status: Light Smoker (<10/day) Tobacco Use: Cigarettes Assessment/Plan 1. Coronary artery disease: Patient presented on 10/11/17 with acute inferior wall myocardial infarction and underwent successful emergent angioplasty and stenting of her proximal PDA, distal RCA, and proximal RCA as well. Her remaining coronary arteries have minimal nonobstructive disease and did not require further evaluation with stress testing. Echocardiogram is pending. Patient is doing quite well and her troponins have peaked so far at 20, and we will continue to monitor in the ICU. She will continue aspirin. Her beta- barbara and ANNALISE inhibitor were held yesterday due to hypotension. Patient's hemoglobin drop is most likely result of a combination of her recent chemotherapy for metastatic lung cancer as well as aggressive hemodilution with receiving approximately 3 L of IV fluids, as well as recent chemotherapy. Patient's oncologist Dr. Ballesteros was recommending holding the patient from discharge for 1 more day to determine if her white count improves. Patient's 2D echo with Doppler yesterday shows intact LV function with an EF around 55-60%, normal RVSP of 18 mmHg. 2. Hemodilution: The patient had a drop in her hemoglobin most likely as a result of hemodilution as well as her chemotherapy recently. She has no outward signs of bleeding, right groin hematoma, or GI issues at this time. 3. Hyperlipidemia: Continue antilipid therapy. Repeat lipid profile in 6 weeks time. 4. Metastatic lung cancer: We will obtain a consultation with Dr. Ballesteros in place of Dr. Gallegos who is out of town. Appreciate Dr. Ballesteros consultation. Patient may proceed with chemotherapy at a minimum of 2-3 weeks time if indicated. 5. Thank you very much for the opportunity to put dissipate in the cardiac care of the patient. Code Visit Inpatient E&M: 03088 Subs Hosp L2
[2017-10-13] MEDS: TICAGRELOR 90 MG TABLET PO ×2 (09:11→21:10)
[2017-10-13] MEDS: Aspirin E.C. 81 MG Tablet PO (09:12)
[2017-10-13] MEDS: TBO-FILGRASTIM 300 MCG/0.5 ML ML SC (09:13)
[2017-10-13] MEDS: Heparin Injection (Vial) 5,000 UNIT/ML VIAL 5000 UNIT SC ×2 (09:14→21:10)
--- NOTE | 2017-10-13 10:00 | EKG12_ITS ---
Test Reason : AM EKG Blood Pressure : / mmHG Vent. Rate : 080 BPM Atrial Rate : 080 BPM P-R Int : 142 ms QRS Dur : 086 ms QT Int : 440 ms P-R-T Axes : 085 021 -76 degrees QTc Int : 507 ms Normal sinus rhythm Inferior infarct , age undetermined T wave abnormality, consider anterior ischemia Prolonged QT Abnormal ECG When compared with ECG of 12-OCT-2017 05:44, MANUAL COMPARISON REQUIRED, DATA IS UNCONFIRMED Confirmed by FAINA ACOSTA, AIYANA ([id number]), school photograph editor BEATRICE MADISON ([id number]) on 10/19/2017 1:10:56 PM Referred By: Beau Lan Confirmed By:AIYANA EISENBERG MD
[2017-10-13] MEDS: CHLORHEXIDINE GLUC 2% CLOTH 1 EACH TOWELETTE TOPICAL (11:14)
[2017-10-13] MEDS: Docusate Sodium 100 MG Capsule PO (16:39)
[2017-10-13] MEDS: 0.9% NaCl Peripheral Flush Adult/Peds IV (16:49)
[2017-10-13] MEDS: Atorvastatin Calcium 80 MG Tablet PO (21:11)
[2017-10-14] VITALS (9 sets, daily range): BP systolic 94–106; BP diastolic 57–65; PULSE 77–96; RESP 13–24; TEMP 36.4–36.7; O2SAT 93–99
[2017-10-14 03:53] LABS: Anion Gap 10 (5-15); BUN 10 mg/dL (7-18); BUN/Creat Ratio 17.1 RATIO (10-20); Calcium,Total 8.6 mg/dL (8.5-10.1); Chloride 107 mmol/L (98-107); Creatinine, Serum 0.58 mg/dL (0.55-1.02); EST Glomerular Filtration Rate 113 mL/min (>60); Est Glom Filt Rate - Afr Amer 136 mL/min (>60); Glucose 87 mg/dL (74-106); Potassium 3.7 mmol/L (3.5-5.1); Sodium Level 142 mmol/L (136-145)
[2017-10-14] MEDS: TBO-FILGRASTIM 300 MCG/0.5 ML ML SC (09:31)
--- NOTE | 2017-10-14 09:31 | PCM.PN.HOSP ---
Patient Problems: Active and Suspected Problems STEMI (ST elevation myocardial infarction) (Acute) Subjective: Patient is a 57-year-old female with a past medical history of lung cancer diagnosed 08/29/2017 and currently on chemotherapy, hypertension, hyperlipidemia and nicotine dependence was admitted via the ED on 10/11/17 with a complaint of substernal chest pain with associated shortness of breath and diaphoresis was diagnosed with an inferior ST DEQUAN based on EKG findings and elevated troponin of 0.079. She was sent straight to [facility] from the ED and had drug-eluting stents placed in the in the proximal and mid RCA and proximal PDA. She has remained stable. Patient seen and examined. She has no complaints this morning. No active issues overnight. Blood pressure still remains low with systolic in the 90s. Review of systems otherwise negative. Vitals/I&O's: Vital Signs Temp Pulse Resp BP Pulse Ox 98.1 F 92 15 94/57 L 99 10/14/17 08:51 10/14/17 08:51 10/14/17 08:51 10/14/17 08:51 10/14/17 03:17 Oxygen Delivery Method Room Air Weight: 128 lb 4.944 oz Body Mass Index (BMI) 21.2 Intake and Output for Last 24 Hours 10/12/17 10/13/17 10/14/17 23:59 23:59 23:59 Intake Total 2084 / 2084 1300 / 1300 60 / 60 Output Total 300 / 300 2 / 2 Balance 1784 / 1784 1298 / 1298 60 / 60 General: Alert, Oriented x3, Cooperative HEENT: Atraumatic Oral: Moist Mucosa Neck: Supple, No JVD, Negative Carotid Bruits Lungs: Clear to auscultation, Normal air movement, No rhonchi, No wheeze, No rales Cardiovascular: Regular rate, No murmurs Abdomen: Bowel Sounds Present, Soft, Non Tender, Non-Distended, No Hepato-splenomegaly Extremities: No clubbing, No cyanosis, No edema, Capillary Refill Less than 3 Seconds Skin: No rashes, No breakdown Musculoskeletal: No Tenderness to Palpation of Joints or Extremities Lymphatic: No Cervical, Supraclavicular, or Inguinal Adenopathy Neurological: Cranial nerves II-XII grossly intact Psych/Mental Status: Normal Affect, Appropriate, Alert and oriented to time, place, person, mood and affect Laboratory Results 10/14/17 03:15: Sodium 142, Potassium 3.7, Chloride 107, Carbon Dioxide 25.0, Anion Gap 10, BUN 10, Creatinine 0.58, Estim Creat Clear Calc 96.30, Est GFR (MDRD) Af Amer 136, Est GFR (MDRD) Non-Af 113, BUN/Creatinine Ratio 17.1, Glucose 87, Calcium 8.6 Current Medications Acetaminophen (Tylenol) 650 mg PO Q6H PRN PRN PRN Reason: Mild Pain (0-2/10) Aspirin (Ecotrin) 81 mg PO DAILY@0800 [facility] Last Admin: 10/13/17 09:12 Dose: 81 mg Atorvastatin Calcium (Lipitor) 80 mg PO QHS [facility] Last Admin: 10/13/17 21:11 Dose: 80 mg Atropine Sulfate () 0.5 mg IV UD PRN PRN Reason: HR <50 bpm Docusate Sodium (Colace) 100 mg PO BID PRN PRN PRN Reason: CONSTIPATION Last Admin: 10/13/17 16:39 Dose: 100 mg Heparin Sodium (Porcine) (Heparin Na) 5,000 unit SC Q12 [facility] Last Admin: 10/13/17 21:10 Dose: 5,000 u Lisinopril (Zestril) 2.5 mg PO DAILY [facility] Last Admin: 10/12/17 10:05 Dose: Not Given Metoprolol Tartrate (Lopressor (Beta Elmer)) 12.5 mg PO BID [facility] Last Admin: 10/12/17 21:00 Dose: Not Given Nutritional Formula (Lactose Free) (Ensure Enlive) 120 ml PO 4X/DAY [facility] Last Admin: 10/13/17 21:23 Dose: Not Given Ondansetron HCl (Zofran) 4 mg IV Q6H PRN PRN PRN Reason: NAUSEA/VOMITING Last Admin: 10/12/17 15:54 Dose: 4 mg Sodium Chloride () 500 ml IV BOLUS PRN PRN Reason: VASO-VAGAL PROTOCOL Sodium Chloride () 5 - 30 ml IV UD PRN PRN Reason: SALINE FLUSH Last Admin: 10/13/17 16:49 Dose: 10 ml Tbo-Filgrastim (Granix) 300 mcg SC DAILY [facility] Last Admin: 10/13/17 09:13 Dose: 300 mcg Ticagrelor (Brilinta) 90 mg PO BID [facility] Last Admin: 10/13/17 21:10 Dose: 90 mg Trazodone HCl (Desyrel) 50 mg PO QHS PRN PRN Reason: INSOMNIA Medical Necessity - Tobacco Use Smoking Status: Light Smoker (<10/day) Tobacco Use: Cigarettes Assessment/Plan All Active Problems H/O right coronary artery stent placement (Acute 10/11/17) STEMI (ST elevation myocardial infarction) (Acute) 57-year-old female admitted with complaint of shortness of breath, pain and diaphoresis and was found to have inferior STEMI; she is s/p PCI with stent placement 1. STEMI s/p PCI with stent placement- POD 3 has no complaints; feels well BP down to 94/57 this morning on brilinta, aspirin, statin. Metoprolol and lisinopril held yesterday o/a of hypotension. ; o/a of hypotension, per discussion with Dr Lan, will dc lisinopril and maintain metoprolol echo reading: EF of 60% with stage 1 diastolic dysfunction nad no regional wall motion abnormalities. RVSP is 18mmHg. cardiac rehab per cardiology 2. 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 Oncology on board scheduled to have chest CT upon discharge on 10.20.17 to have [facility] ~ 1 month to follow up with Dr Gallegos in 2 weeks after discharge 3. Neutropenia, likely chemotherapy induced White cell count was down to 2.6 yesterday. Pending today. Subcut chronic's 300 mg daily. Will discharge home with sc granix 300 mg daily ?5 days. To follow-up with oncologist. w 4. HTN: BP is 90 systolic today. Metoprolol and lisinopril held yesterday on account of hypotension. Discussed with Dr Lan; will stop metoprolol and lisinopril and start PO carvedilol 3.125mg bid. . 5. Hyperlipidemia: on high intensity statin 6 Anemia, likely due to hemodilution likely hemodilutional. has remained stable at ~ 8.8 will monitor 7. Nicotine dependence: counselled to quit. DVT prophylaxis: heparin Disposition: dc today on SC granix, ticagrelor, carvedilol, aspirin and statin. To follow up with PCP, oncologist and knit tubing dyer. This note was generated with [employer] dictation software. It may contain incorrect words, spelling, and punctuation that were not noted in checking the note before signing. Code Visit Inpatient E&M: 75834 Subs Hosp L3
[2017-10-14] MEDS: Aspirin E.C. 81 MG Tablet PO (09:34)
[2017-10-14] MEDS: TICAGRELOR 90 MG TABLET PO (09:34)
[2017-10-14] MEDS: Heparin Injection (Vial) 5,000 UNIT/ML VIAL 5000 UNIT SC (09:35)
--- NOTE | 2017-10-14 09:36 | PN_ITS ---
Patient Problems: Active and Suspected Problems STEMI (ST elevation myocardial infarction) (Acute) Subjective: Patient is a 57-year-old female with a past medical history of lung cancer diagnosed 08/29/2017 and currently on chemotherapy, hypertension, hyperlipidemia and nicotine dependence was admitted via the ED on 10/11/17 with a complaint of substernal chest pain with associated shortness of breath and diaphoresis was diagnosed with an inferior ST DEQUAN based on EKG findings and elevated troponin of 0.079. She was sent straight to [facility] from the ED and had drug- eluting stents placed in the in the proximal and mid RCA and proximal PDA. She has remained stable. Patient seen and examined. She has no complaints this morning. No active issues overnight. Blood pressure still remains low with systolic in the 90s. Review of systems otherwise negative. Vitals/I&O's: Vital Signs Temp Pulse Resp BP Pulse Ox 98.1 F 92 15 94/57 L 99 10/14/17 08:51 10/14/17 08:51 10/14/17 08:51 10/14/17 08:51 10/14/17 03:17 Oxygen Delivery Method Room Air Weight: 128 lb 4.944 oz Body Mass Index (BMI) 21.2 Intake and Output for Last 24 Hours 10/12/17 10/13/17 10/14/17 23:59 23:59 23:59 Intake Total 2084 / 2084 1300 / 1300 60 / 60 Output Total 300 / 300 2 / 2 Balance 1784 / 1784 1298 / 1298 60 / 60 General: Alert, Oriented x3, Cooperative HEENT: Atraumatic Oral: Moist Mucosa Neck: Supple, No JVD, Negative Carotid Bruits Lungs: Clear to auscultation, Normal air movement, No rhonchi, No wheeze, No rales Cardiovascular: Regular rate, No murmurs Abdomen: Bowel Sounds Present, Soft, Non Tender, Non-Distended, No Hepato- splenomegaly Extremities: No clubbing, No cyanosis, No edema, Capillary Refill Less than 3 Seconds Skin: No rashes, No breakdown Musculoskeletal: No Tenderness to Palpation of Joints or Extremities Lymphatic: No Cervical, Supraclavicular, or Inguinal Adenopathy Neurological: Cranial nerves II-XII grossly intact Psych/Mental Status: Normal Affect, Appropriate, Alert and oriented to time, place, person, mood and affect Laboratory Results 10/14/17 03:15: Sodium 142, Potassium 3.7, Chloride 107, Carbon Dioxide 25.0, Anion Gap 10, BUN 10, Creatinine 0.58, Estim Creat Clear Calc 96.30, Est GFR ( MDRD) Af Amer 136, Est GFR (MDRD) Non-Af 113, BUN/Creatinine Ratio 17.1, Glucose 87, Calcium 8.6 Current Medications Acetaminophen (Tylenol) 650 mg PO Q6H PRN PRN PRN Reason: Mild Pain (0-2/10) Aspirin (Ecotrin) 81 mg PO DAILY@0800 [facility] Last Admin: 10/13/17 09:12 Dose: 81 mg Atorvastatin Calcium (Lipitor) 80 mg PO QHS [facility] Last Admin: 10/13/17 21:11 Dose: 80 mg Atropine Sulfate () 0.5 mg IV UD PRN PRN Reason: HR <50 bpm Docusate Sodium (Colace) 100 mg PO BID PRN PRN PRN Reason: CONSTIPATION Last Admin: 10/13/17 16:39 Dose: 100 mg Heparin Sodium (Porcine) (Heparin Na) 5,000 unit SC Q12 [facility] Last Admin: 10/13/17 21:10 Dose: 5,000 u Lisinopril (Zestril) 2.5 mg PO DAILY [facility] Last Admin: 10/12/17 10:05 Dose: Not Given Metoprolol Tartrate (Lopressor (Beta Elmer)) 12.5 mg PO BID [facility] Last Admin: 10/12/17 21:00 Dose: Not Given Nutritional Formula (Lactose Free) (Ensure Enlive) 120 ml PO 4X/DAY [facility] Last Admin: 10/13/17 21:23 Dose: Not Given Ondansetron HCl (Zofran) 4 mg IV Q6H PRN PRN PRN Reason: NAUSEA/VOMITING Last Admin: 10/12/17 15:54 Dose: 4 mg Sodium Chloride () 500 ml IV BOLUS PRN PRN Reason: VASO-VAGAL PROTOCOL Sodium Chloride () 5 - 30 ml IV UD PRN PRN Reason: SALINE FLUSH Last Admin: 10/13/17 16:49 Dose: 10 ml Tbo-Filgrastim (Granix) 300 mcg SC DAILY [facility] Last Admin: 10/13/17 09:13 Dose: 300 mcg Ticagrelor (Brilinta) 90 mg PO BID [facility] Last Admin: 10/13/17 21:10 Dose: 90 mg Trazodone HCl (Desyrel) 50 mg PO QHS PRN PRN Reason: INSOMNIA Medical Necessity - Tobacco Use Smoking Status: Light Smoker (<10/day) Tobacco Use: Cigarettes Assessment/Plan All Active Problems H/O right coronary artery stent placement (Acute 10/11/17) STEMI (ST elevation myocardial infarction) (Acute) 57-year-old female admitted with complaint of shortness of breath, pain and diaphoresis and was found to have inferior STEMI; she is s/p PCI with stent placement 1. STEMI s/p PCI with stent placement- POD 3 * has no complaints; feels well * BP down to 94/57 this morning * on brilinta, aspirin, statin. Metoprolol and lisinopril held yesterday o/a of hypotension. ; o/a of hypotension, per discussion with Dr Lan, will dc lisinopril and maintain metoprolol * echo reading: EF of 60% with stage 1 diastolic dysfunction nad no regional wall motion abnormalities. RVSP is 18mmHg. * cardiac rehab per cardiology * 2. small cell lung cancer * on chemotherapy; had last session of chemo 1 week ago; due to have 3rd cycle of chemo week of 10/27. * Oncology on board * scheduled to have chest CT upon discharge on 10.20.17 * to have brain MRI at [facility] in ~ 1 month * to follow up with Dr Gallegos in 2 weeks after discharge * * 3. Neutropenia, likely chemotherapy induced * White cell count was down to 2.6 yesterday. Pending today. * Subcut chronic's 300 mg daily. Will discharge home with sc granix 300 mg daily ?5 days. * To follow-up with oncologist. * w 4. HTN: BP is 90 systolic today. Metoprolol and lisinopril held yesterday on account of hypotension. Discussed with Dr Lan; will stop metoprolol and lisinopril and start PO carvedilol 3.125mg bid. . 5. Hyperlipidemia: on high intensity statin 6 Anemia, likely due to hemodilution * likely hemodilutional. has remained stable at ~ 8.8 * will monitor * 7. Nicotine dependence: counselled to quit. DVT prophylaxis: heparin Disposition: dc today on SC granix, ticagrelor, carvedilol, aspirin and statin. To follow up with PCP, oncologist and support worker. This note was generated with [employer] dictation software. It may contain incorrect words, spelling, and punctuation that were not noted in checking the note before signing. Code Visit Inpatient E&M: 43421 Subs Hosp L3
[2017-10-14] MEDS: Metoprolol Tartrate 25 MG Tablet 12.5 MG PO (09:37)
--- NOTE | 2017-10-14 10:00 | NURSING ---
patient & son instructed on granix injections pt could not do it herself but son did he will give injections @ home
--- NOTE | 2017-10-14 10:00 | EKG12_ITS ---
Test Reason : AM EKG Blood Pressure : / mmHG Vent. Rate : 080 BPM Atrial Rate : 080 BPM P-R Int : 142 ms QRS Dur : 086 ms QT Int : 414 ms P-R-T Axes : 077 023 -76 degrees QTc Int : 477 ms Normal sinus rhythm Inferior infarct , age undetermined T wave abnormality, consider anterior ischemia Abnormal ECG When compared with ECG of 13-OCT-2017 05:27, MANUAL COMPARISON REQUIRED, DATA IS UNCONFIRMED Confirmed by FAINA ACOSTA, AIYANA ([id number]), supervising editor trailer BEATRICE MADISON ([id number] on 10/19/2017 1:10:13 PM Referred By: Beau Lan Confirmed By:AIYANA EISENBERG MD
[2017-10-14 10:05] LABS: Absolute Lymphocyte Count 1.46 X10^3/ul (0.83-4.51); Absolute Neutrophil Count 1.9 X10^3/uL (2.0-7.7); Basophil# 0.08 X10^3/uL; Basophil% 2.1 % (0-1); Eosinophil# 0.01 X10^3/uL; Eosinophils% 0.3 % (0-5); Hematocrit 25.8 % (37-47); Hemoglobin 8.6 g/dl (12.0-15.0); Lymphocyte # 1.46 X10^3/ul (4.0); Lymphocyte % 38.7 % (19-41); Mean Corp Hgb Conc 33.3 g/gl (32-36); Mean Corpuscular Hgb 29.5 pg (27.0-32.0); Mean Corpuscular Volume 88.4 fL (81-99); Mean Platelet Vol. 9.6 fl (6.2-12.0); Monocyte# 0.31 X10^3/uL; Monocyte% 8.2 % (0-10); Neutrophil % 50.4 % (47-70); Platelet Count 268 K/mm3 (150-450); RBC Distribution Width CV 12.4 % (11.6-14.6); RBC Distribution Width SD 38.3 fl (35.1-43.9); Red Blood Count 2.92 M/mm3 (4.2-5.4); White Blood Count 3.8 K/mm3 (4.4-11.0)
[2017-10-14 10:06] LABS: POSITIVE COUNT NO; POSITIVE DIFFERENTIAL NO; POSITIVE MORPHOLOGY NO
--- NOTE | 2017-10-14 11:05 | PCM.PN.CARD ---
Subjectve: Patient doing very well this morning, no 24 hour events. Telemetry negative. No chest pain. Right groin is clean/dry/intact. White blood cell count increasing. Hemoglobin 8.6 which is less than 4 g drop since admission, and no overt signs of bleeding. Most likely due to fluid resuscitation and chemotherapy related. Objective: Vital Signs Temp Pulse Resp BP Pulse Ox 98.1 F 96 24 H 104/65 93 10/14/17 08:51 10/14/17 09:46 10/14/17 09:46 10/14/17 09:46 10/14/17 09:46 Oxygen Delivery Method Room Air Weight: 128 lb 4.944 oz Body Mass Index (BMI) 21.2 Intake and Output for Last 24 Hours 10/12/17 10/13/17 10/14/17 23:59 23:59 23:59 Intake Total 2084 / 2084 1300 / 1300 60 / 60 Output Total 300 / 300 2 / 2 Balance 1784 / 1784 1298 / 1298 60 / 60 General: Awake, Alert, Oriented x 3 HEENT: PERRL, EOMI, Sclera Non Icteric Neck: Supple, Good ROM, No Lymph Node Enlargement Lungs: Clear to auscultation Cardiovascular: Regular Rhythm, Normal S1, Normal S2, No Murmurs, No Rubs, No Gallops Vascular: No Carotid Bruits, Normal Femoral Pulses, Normal Radial Pulses, Normal Dorsalis Pedal Pulse, Normal Posterior Tibial Pulses Abdomen: Bowel Sounds Present, Soft, Non Tender, No HSM, No Organomegaly Extremities: No Cyanosis, No Clubbing, No edema Neurological: No Focal Motor or Sensory Deficit 10/14/17 03:05: WBC 3.8 L, RBC 2.92 L, Hgb 8.6 L, Hct 25.8 L, MCV 88.4, MCH 29.5, MCHC 33.3, RDW 12.4, RDW Differential 38.3, Plt Count 268, MPV 9.6, Immature Gran % (Auto) 0.300, Neut % (Auto) 50.4, Lymph % (Auto) 38.7, [place] % (Auto) 8.2, Eos % (Auto) 0.3, Baso % (Auto) 2.1 H, Absolute Neuts (auto) 1.9 L, Total Counted Not Reportable 10/14/17 03:15: Sodium 142, Potassium 3.7, Chloride 107, Carbon Dioxide 25.0, Anion Gap 10, BUN 10, Creatinine 0.58, Est GFR (MDRD) Af Amer 136, Est GFR (MDRD) Non-Af 113, BUN/Creatinine Ratio 17.1, Glucose 87, Calcium 8.6 Rhythm: EKG: ECHO: Stress Test: Cardiac Cath: PCI: CT Surgery: Holter monitor: EPS: PPM: CXR: Chest CT Scan: Medical Necessity - Tobacco Use Smoking Status: Light Smoker (<10/day) Tobacco Use: Cigarettes Assessment/Plan 1. Coronary artery disease: Patient presented on 10/11/17 with acute inferior wall myocardial infarction and underwent successful emergent angioplasty and stenting of her proximal PDA, distal RCA, and proximal RCA as well. Her remaining coronary arteries have minimal nonobstructive disease and did not require further evaluation with stress testing. Echocardiogram is pending. Patient is doing quite well and her troponins have peaked so far at 20, and we will continue to monitor in the ICU. She will continue aspirin. Her beta-barbara and ANNALISE inhibitor were held yesterday due to hypotension. Patient's hemoglobin drop is most likely result of a combination of her recent chemotherapy for metastatic lung cancer as well as aggressive hemodilution with receiving approximately 3 L of IV fluids, as well as recent chemotherapy. Patient's oncologist Dr. Ballesteros was recommending holding the patient from discharge for 1 more day to determine if her white count improves. Patient's 2D echo with Doppler yesterday shows intact LV function with an EF around 55-60%, normal RVSP of 18 mmHg. Would recommend starting Coreg 3.[address] beta-barbara and lisinopril, and repeating blood pressure check in 2 weeks time. 2. Hemodilution: The patient had a drop in her hemoglobin most likely as a result of hemodilution as well as her chemotherapy recently. She has no outward signs of bleeding, right groin hematoma, or GI issues at this time 3. Hyperlipidemia: Continue antilipid therapy. Repeat lipid profile in 6 weeks time. 4. Metastatic lung cancer: We will obtain a consultation with Dr. Ballesteros in place of Dr. Gallegos who is out of town. Appreciate Dr. Ballesteros consultation. Patient may proceed with chemotherapy at a minimum of 2-3 weeks time if indicated. 5. Thank you very much for the opportunity to put dissipate in the cardiac care of the patient. Code Visit Inpatient E&M: 90470 Subs Hosp L2
--- NOTE | 2017-10-14 11:33 | PCM.DC ---
- Discharge Diagnoses Current Active Problems: Current Active and Chronic Problems Brain metastases (Chronic) HTN (hypertension) (Chronic) STEMI (ST elevation myocardial infarction) (Acute) HLD (hyperlipidemia) (Chronic) Lung cancer (Chronic) Extensive small cell lung cancer Tobacco dependence (Chronic) You will use the following diet at home:: Cardiac Your food should be the consistency of: Regular Your liquids should be the consistency of: Regular/Thin Discharge Activity: Return to Normal Activity May resume sexual activity in: No Restrictions Weight Bearing Status: Weight bearing as tolerated Call your doctor if your incision/area has: Continuous Slow Oozing, Sudden Increased Bleeding, Increased Pain/ Swelling Call your doctor if you observe: Fever of 101 or Higher, Shortness of breath, Dizziness, Chest pain Additional Instructions: please inject the Granix under the skin for the next 5 days. Please follow up with your primary care doctor in one week Allergies/Adverse Reactions: Allergies Penicillins [PCN] Allergy (Verified 10/11/17 15:11) Hives Medications to take at Discharge Ondansetron [Zofran Odt] 8 mg PO Q8H PRN PRN 10/11/17 Aspirin E.C. [Ecotrin] 81 mg PO DAILY@0800 #30 tab 10/14/17 Atorvastatin Calcium [Lipitor] 80 mg PO QHS #30 tab 10/14/17 Carvedilol [Coreg (Beta Elmer)] 3.125 mg PO BID 30 Days #60 tab 10/14/17 Tbo-Filgrastim [Granix] 300 mcg SC DAILY 5 Days #5 vial 10/14/17 Ticagrelor [Brilinta] 90 mg PO BID #60 tab 10/14/17 The following prescriptions were given: Aspirin E.C. [Ecotrin] 81 mg PO DAILY@0800 #30 tab Atorvastatin Calcium [Lipitor] 80 mg PO QHS #30 tab Tbo-Filgrastim [Granix] 300 mcg SC DAILY 5 Days #5 vial Carvedilol [Coreg (Beta Elmer)] 3.125 mg PO BID 30 Days #60 tab Ticagrelor [Brilinta] 90 mg PO BID #60 tab Test Results: Please Follow Up With: Beau Lan MD When: Wednesday Please Follow Up With: Darrian Gallegos DO When: two weeks Proposed Discharge Date: 10/14/17 Cardiac Rehab Referral Please Follow Up with Cardiac Rehabilitation:: 2 Weeks Cardiac Rehabilitation was informed of this Referral:: No - Cardiac rehab already aware of patient
--- NOTE | 2017-10-14 11:38 | DS.PCM_ITS ---
Discharge Date and Diagnosis - Problem List Patient Problems: Active and Suspected Problems STEMI (ST elevation myocardial infarction) (Acute) Date of Admission: 10/11/17 Date of Discharge: 10/14/17 - Primary Discharge Diagnosis Active and Suspected Problems STEMI (ST elevation myocardial infarction) (Acute) - Secondary Discharge Diagnosis Chronic Problems Brain metastases (Chronic) HTN (hypertension) (Chronic) HLD (hyperlipidemia) (Chronic) Lung cancer (Chronic) Extensive small cell lung cancer Tobacco dependence (Chronic) Hospital Course and Treatment Imaging Results: Impressions Chest X-Ray 10/11/17 16:39 IMPRESSION: Question COPD without acute cardiopulmonary disease. Electronically Signed: Addison Camarena DO at 17:40 EDT Tel [phone], Service support , Laboratory Results 10/14/17 10/14/17 Range/Units 03:05 03:15 WBC 3.8 L (4.4-11.0) K/mm3 RBC 2.92 L (4.2-5.4) M/mm3 Hgb 8.6 L (12.0-15.0) g/dl Hct 25.8 L (37-47) % MCV 88.4 (81-99) fL MCH 29.5 (27.0-32.0) pg MCHC 33.3 (32-36) g/gl RDW 12.4 (11.6-14.6) % RDW Differential 38.3 (35.1-43.9) fl Plt Count 268 (150-450) K/mm3 MPV 9.6 (6.2-12.0) fl Immature Gran % (Auto) 0.300 (0.0-0.9) % Neut % (Auto) 50.4 (47-70) % Lymph % (Auto) 38.7 (19-41) % [place] % (Auto) 8.2 (0-10) % Eos % (Auto) 0.3 (0-5) % Baso % (Auto) 2.1 H (0-1) % Absolute Neuts (auto) 1.9 L (2.0-7.7) X10^3/uL Absolute Lymphs (auto) 1.46 (0.83-4.51) X10^3/ul Total Counted Not Reportable Sodium 142 (136-145) mmol/L Potassium 3.7 (3.5-5.1) mmol/L Chloride 107 (98-107) mmol/L Carbon Dioxide 25.0 (21.0-32.0) mmol/L Anion Gap 10 (5-15) BUN 10 (7-18) mg/dL Creatinine 0.58 (0.55-1.02) mg/dL Estim Creat Clear Calc 96.30 ml/min Est GFR (MDRD) Af Amer 136 (>60) mL/min Est GFR (MDRD) Non-Af 113 (>60) mL/min BUN/Creatinine Ratio 17.1 (10-20) RATIO Glucose 87 (74-106) mg/dL Calcium 8.6 (8.5-10.1) mg/dL Laboratory Tests 10/11/17 10/11/17 10/11/17 16:55 16:55 16:55 WBC 6.6 RBC 4.16 L Hgb 12.0 Hct 36.1 L MCV 86.8 MCH 28.8 MCHC 33.2 RDW 12.8 RDW Differential 40.8 Plt Count 476 H MPV 8.5 Immature Gran % (Auto) 1.400 H Neut % (Auto) 82.2 H Lymph % (Auto) 15.6 L [place] % (Auto) 0.3 Eos % (Auto) 0.0 Baso % (Auto) 0.5 Absolute Neuts (auto) 5.4 Absolute Lymphs (auto) 1.03 Total Counted Not Reportable Platelet Estimate RBC Morphology PT 13.0 INR 1.0 APTT 24.8 Activated Clotting Time Sodium 137 Potassium 4.0 Chloride 102 Carbon Dioxide 26.0 Anion Gap 9 BUN 17 Creatinine 0.78 Estim Creat Clear Calc 71.23 Est GFR (MDRD) Af Amer 98 Est GFR (MDRD) Non-Af 81 BUN/Creatinine Ratio 21.8 H Glucose 104 Calcium 9.2 Troponin I 0.079 H Triglycerides Cholesterol LDL Cholesterol VLDL Cholesterol HDL Cholesterol 10/11/17 10/11/17 10/11/17 17:50 18:19 20:55 WBC RBC Hgb Hct MCV MCH MCHC RDW RDW Differential Plt Count MPV Immature Gran % (Auto) Neut % (Auto) Lymph % (Auto) [place] % (Auto) Eos % (Auto) Baso % (Auto) Absolute Neuts (auto) Absolute Lymphs (auto) Total Counted Platelet Estimate RBC Morphology PT INR APTT Activated Clotting Time 175 H 224 H Sodium Potassium Chloride Carbon Dioxide Anion Gap BUN Creatinine Estim Creat Clear Calc Est GFR (MDRD) Af Amer Est GFR (MDRD) Non-Af BUN/Creatinine Ratio Glucose Calcium Troponin I 6.500 H* Triglycerides Cholesterol LDL Cholesterol VLDL Cholesterol HDL Cholesterol 10/11/17 10/11/17 10/12/17 20:57 21:59 00:15 WBC RBC Hgb Hct MCV MCH MCHC RDW RDW Differential Plt Count MPV Immature Gran % (Auto) Neut % (Auto) Lymph % (Auto) [place] % (Auto) Eos % (Auto) Baso % (Auto) Absolute Neuts (auto) Absolute Lymphs (auto) Total Counted Platelet Estimate RBC Morphology PT INR APTT Activated Clotting Time 158 H 131 Sodium Potassium Chloride Carbon Dioxide Anion Gap BUN Creatinine Estim Creat Clear Calc Est GFR (MDRD) Af Amer Est GFR (MDRD) Non-Af BUN/Creatinine Ratio Glucose Calcium Troponin I 15.900 H* Triglycerides Cholesterol LDL Cholesterol VLDL Cholesterol HDL Cholesterol 10/12/17 10/12/17 10/12/17 03:12 03:12 03:12 WBC 3.5 L RBC 2.93 L Hgb 8.6 L Hct 25.4 L MCV 86.7 MCH 29.4 MCHC 33.9 RDW 13.0 RDW Differential 41.5 Plt Count 337 MPV 7.9 Immature Gran % (Auto) Neut % (Auto) Lymph % (Auto) [place] % (Auto) Eos % (Auto) Baso % (Auto) Absolute Neuts (auto) Absolute Lymphs (auto) Total Counted Platelet Estimate RBC Morphology PT INR APTT Activated Clotting Time Sodium 141 Potassium 3.9 Chloride 109 H Carbon Dioxide 23.0 Anion Gap 9 BUN 13 Creatinine 0.60 Estim Creat Clear Calc 93.09 Est GFR (MDRD) Af Amer 133 Est GFR (MDRD) Non-Af 110 BUN/Creatinine Ratio 21.8 H Glucose 93 Calcium 8.1 L Troponin I 20.900 H* Triglycerides 228 H Cholesterol 151 LDL Cholesterol 57 VLDL Cholesterol 46 H HDL Cholesterol 48 10/12/17 10/13/17 10/13/17 05:15 04:30 04:30 WBC 4.0 L 2.6 L RBC 3.01 L 2.97 L Hgb 8.8 L 8.8 L Hct 26.2 L 26.0 L MCV 87.0 87.5 MCH 29.2 29.6 MCHC 33.6 33.8 RDW 12.9 12.4 RDW Differential 41.7 38.5 Plt Count TNP 323 MPV 8.3 8.2 Immature Gran % (Auto) 0.500 0.400 Neut % (Auto) 64.4 44.3 L Lymph % (Auto) 33.8 46.3 H [place] % (Auto) 0.5 5.5 Eos % (Auto) 0.0 0.8 Baso % (Auto) 0.8 2.7 H Absolute Neuts (auto) 2.6 1.1 L Absolute Lymphs (auto) 1.34 1.18 Total Counted Not Reportable Not Reportable Platelet Estimate ADEQUATE RBC Morphology NORM C+C PT INR APTT Activated Clotting Time Sodium 141 Potassium 3.4 L Chloride 106 Carbon Dioxide 26.0 Anion Gap 9 BUN 11 Creatinine 0.60 Estim Creat Clear Calc 93.09 Est GFR (MDRD) Af Amer 131 Est GFR (MDRD) Non-Af 108 BUN/Creatinine Ratio 18.2 Glucose 91 Calcium 8.4 L Troponin I Triglycerides Cholesterol LDL Cholesterol VLDL Cholesterol HDL Cholesterol 10/14/17 10/14/17 03:05 03:15 WBC 3.8 L RBC 2.92 L Hgb 8.6 L Hct 25.8 L MCV 88.4 MCH 29.5 MCHC 33.3 RDW 12.4 RDW Differential 38.3 Plt Count 268 MPV 9.6 Immature Gran % (Auto) 0.300 Neut % (Auto) 50.4 Lymph % (Auto) 38.7 [place] % (Auto) 8.2 Eos % (Auto) 0.3 Baso % (Auto) 2.1 H Absolute Neuts (auto) 1.9 L Absolute Lymphs (auto) 1.46 Total Counted Not Reportable Platelet Estimate RBC Morphology PT INR APTT Activated Clotting Time Sodium 142 Potassium 3.7 Chloride 107 Carbon Dioxide 25.0 Anion Gap 10 BUN 10 Creatinine 0.58 Estim Creat Clear Calc 96.30 Est GFR (MDRD) Af Amer 136 Est GFR (MDRD) Non-Af 113 BUN/Creatinine Ratio 17.1 Glucose 87 Calcium 8.6 Troponin I Triglycerides Cholesterol LDL Cholesterol VLDL Cholesterol HDL Cholesterol cardiology oncology Operations: None Procedures: 2-D Echocardiogram, Cardiac catheterization, EKG Summary of Care Provided: Patient is a 57-year-old female with a past medical history of lung cancer diagnosed 08/29/2017 and currently on chemotherapy, hypertension, hyperlipidemia and nicotine dependence was admitted via the ED on 10/11/17 with a complaint of substernal chest pain with associated shortness of breath and diaphoresis was diagnosed with an inferior ST DEQUAN based on EKG findings and elevated troponin of 0.079. She was sent straight to the [facility] from the ED and had drug- eluting stents placed in the in the proximal and mid RCA and proximal PDA. She remained stable. 2D echo done after cardiac cath showed EF of 55%. She developed neutropenia, likely chemotherapy induced. She was give a dose of SC granix. Patient was also noted to be hypotensive, and so metoprolol and lisinopril initiated after cardiac cath were stopped. Patient remained stable and was discharged home on 10/14/17, on aspirin, atorvastatin, ticagrelor, and carvedilol. Lisinoprilw as stopped o/a of hypotension. She was also discharged home on SC granix 300mg daily x 5 days for persistent neutropenia. She is to follow up with Dr Lan in one week, and with Dr Gallegos in 2 weeks. She started cardiac rehab in the hospital, and is to follow up with them on outpatient basis. She is to have a follow up chest CT per oncology as well as a brain MRI at [facility] upon follow up. [] Discharge Diet: Low fat/ Low Cholesterol Discharge Activity: Return to Normal Activity May resume sexual activity in: No Restrictions Weight Bearing Status: Weight bearing as tolerated Call your doctor if your incision/area has: Continuous Slow Oozing, Sudden Increased Bleeding, Increased Pain/ Swelling Call your doctor if you observe: Fever of 101 or Higher, Shortness of breath, Dizziness, Chest pain Home Medications: Medications to take at Discharge Ondansetron [Zofran Odt] 8 mg PO Q8H PRN PRN 10/11/17 Aspirin E.C. [Ecotrin] 81 mg PO DAILY@0800 #30 tab 10/14/17 Atorvastatin Calcium [Lipitor] 80 mg PO QHS #30 tab 10/14/17 Carvedilol [Coreg (Beta Elmer)] 3.125 mg PO BID 30 Days #60 tab 10/14/17 Tbo-Filgrastim [Granix] 300 mcg SC DAILY 5 Days #5 vial 10/14/17 Ticagrelor [Brilinta] 90 mg PO BID #60 tab 10/14/17 Following Prescrptions Were Given to Patient: Aspirin E.C. [Ecotrin] 81 mg PO DAILY@0800 #30 tab Atorvastatin Calcium [Lipitor] 80 mg PO QHS #30 tab Tbo-Filgrastim [Granix] 300 mcg SC DAILY 5 Days #5 vial Carvedilol [Coreg (Beta Elmer)] 3.125 mg PO BID 30 Days #60 tab Ticagrelor [Brilinta] 90 mg PO BID #60 tab Primary Care Physician: Care Physician,No Primary [Primary Care Provider] - Please Follow Up With: Beau Lan MD When: Wednesday Please Follow Up With: Darrian Gallegos DO When: two weeks Disposition: Home Minutes spent on discharge:: 35 Patient Condition:: Good Medical Necessity - Tobacco Use Smoking Status: Light Smoker (<10/day) Tobacco Use: Cigarettes Meaningful Use Info Meaningful Use Diagnoses (Choose all that apply): AMI - AMI Aspirin given w/in 24hrs of arrival?: Yes ASA at discharge?: Yes Statins at discharge?: Yes Nirmal/ARB at discharge?: No Reason Nirmal/ARB not ordered:: Hypotension Beta Elmer at discharge?: Yes Done w/ Acute VT measure.: Yes Code Visit Inpatient E&M: 00153 Disch Hosp
--- NOTE | 2017-10-14 16:02 | NURSING ---
reviewed discharged instructions with patient reviewed meds and post pci instructions, voiced understanding
== END 2017-10-14 16:25 | disposition home or self-care (01) | DRG 247 ==
LOC: ED 17:06 → ICU 17:25
PROVIDERS: Internal Medicine Cardiovascular Disease; Admitting Provider Internal Medicine; Emergency Provider Emergency Medicine; Visit Provider Student in an Organized Health Care Education/Training Program
DX: I21.19 ST elevation (STEMI) myocardial infarction involving other coronary artery of inferior wall (principal); C34.90 Malignant neoplasm of unspecified part of unspecified bronchus or lung; C79.31 Secondary malignant neoplasm of brain; I47.2 Ventricular tachycardia; I10 Essential (primary) hypertension; E78.5 Hyperlipidemia, unspecified; F17.210 Nicotine dependence, cigarettes, uncomplicated; Z92.3 Personal history of irradiation; Z79.899 Other long term (current) drug therapy; D70.1 Agranulocytosis secondary to cancer chemotherapy; T45.1X5A Adverse effect of antineoplastic and immunosuppressive drugs, initial encounter; I25.10 Atherosclerotic heart disease of native coronary artery without angina pectoris
CPT/HCPCS: 71045; 80048; 80061; 84484; 85025; 85027; 85347; 85610; 85730; 92929; 92941; 93005; 93306; 93458; 97802; 99285; 99406; J7030; Q9967; A4216; C1725; C1769; C1874; C1887; C9601; C9606; J1447; J1940; J2405